=== PATIENT | female | born 1990 | race American Indian/Alaskan Native ===

== ENCOUNTER 2018-04-01 15:11 | Emergency (ER) | payer MEDICAID, OTHER, SELFPAY ==
--- NOTE | 2018-04-01 15:25 | ED_ITS ---
HPI - Female Genitourinary <AYDEN Harman - Last Filed: 04/01/18 21:33> General Chief complaint: Urogenital-Female Stated complaint: THINKS HER KIDNEY HURTS Time Seen by Provider: 04/01/18 15:24 History of Present Illness HPI Narrative: 27-year-old female here for complaint of pain into her right lower back for the past week. She denies any trauma to the area although she does state that she has been working out. She reports increased pain with motion of the right back. She denies any urinary symptoms. She denies any blood in her urine. No abnormal vaginal discharge or bleeding. Last bowel movement was earlier today and was unremarkable. No nausea vomiting no fevers or chills. She also states she has had generalized lower abdominal discomfort however nothing specific in no point tenderness. Related Data Home Medications Medication Instructions Recorded Confirmed ibuprofen 800 mg PO TIDP PRN #0 03/17/17 vit-iron fum-folic ac 1 cap PO QDAY #0 03/17/17 [Mynatal] Previous Rx's Medication Instructions Recorded amoxicillin-pot clavulanate 875 mg PO BID #20 tab 03/13/17 [Augmentin] metronidazole [Flagyl] 500 mg PO TID #30 tab 03/16/17 ibuprofen 800 mg PO Q8H #60 tab 03/21/17 hydrocodone-acetaminophen 0 tab PO Q6H PRN PRN #15 tab 03/24/17 Allergies Allergy/AdvReac Type Severity Reaction Status Date / Time hydrocodone AdvReac Redness of Verified 04/01/18 15:41 Skin Review of Systems <AYDEN Harman - Last Filed: 04/01/18 21:33> Constitutional Denies chills, Denies fever(s), Denies lethargy and Denies weakness Eyes Denies change in vision, Denies eye discharge, Denies irritation and Denies loss of vision ENT Ears, Nose, Mouth, and Throat: Denies change in voice, Denies neck pain and Denies sore throat Cardiovascular Denies dyspnea and Denies dyspnea on exertion Respiratory Denies cough, Denies dyspnea, Denies dyspnea on exertion and Denies wheezing Gastrointestinal Gastrointestinal: Reports abdominal pain Genitourinary Reports flank pain Musculoskeletal Reports back pain and Denies neck pain Neurologic Denies confusion, Denies loss of vision and Denies weakness Psychiatric Denies anxiety, Denies confusion, Denies depression, Denies homicidal ideation and Denies suicidal ideation Allergic/Immunologic Denies wheezing Exam <AYDEN Harman - Last Filed: 04/01/18 21:33> Initial Vital Signs Initial Vital Signs: Vital Signs Temperature 98.6 F 04/01/18 15:36 Pulse Rate 54 L 04/01/18 15:36 Respiratory Rate 14 04/01/18 15:36 Blood Pressure 132/68 H 04/01/18 15:36 Pulse Oximetry 100 04/01/18 15:36 Const General: cooperative and well developed Nutritional Appearance: well nourished Orientation: alert, awake, oriented x3 and not confused HENMT Mouth: oral mucosae normal, oropharynx normal and moist mucous membranes Eyes General: appearance normal, both eyes and all related structures Eyelids: eyelids normal Conjunctivae: conjunctivae normal Sclera: sclerae normal Pupils: PERRL EOM: EOM intact bilaterally Resp Effort & Inspection: normal respiratory effort, able to speak in complete sentences, no respiratory distress and no use of accessory muscles Auscultation: clear to auscultation bilaterally, no rales, no rhonchi and no wheezes Cardio Rate: regular rate Rhythm: regular rhythm Heart Sounds: no click, no gallops, no murmurs and no rubs GI Palpation: soft and No hepatomegaly Other: Generalized tenderness to bilateral lower abdomen no point tenderness. No CVA tenderness. No masses or hernias appreciated. General: No CVA tenderness Back/Spine/Pelvis Other: Tenderness to the right lumbar paraspinals Skin General: no rashes or lesions noted, No jaundice and No petechiae <Balbir Zimmerman DO - Last Filed: 04/01/18 22:04> Initial Vital Signs Initial Vital Signs: Vital Signs Temperature 98.6 F 04/01/18 15:36 Pulse Rate 54 L 04/01/18 15:36 Respiratory Rate 14 04/01/18 15:36 Blood Pressure 132/68 H 04/01/18 15:36 Pulse Oximetry 100 04/01/18 15:36 Course <AYDEN Harman - Last Filed: 04/01/18 21:33> Orders Ordered: ED Orders 04/01/18 17:47 CT abdomen pelvis w con Stat 04/01/18 18:09 Complete Blood Count AUTO DIFF Stat Comprehensive Metabolic Panel Stat Lipase Stat Discontinued Medications Diphenhydramine HCl (Benadryl) 25 mg IV NOW ONE Stop: 04/01/18 17:46 Last Admin: 04/01/18 18:16 Dose: 25 mg Hydromorphone HCl (Dilaudid) 0.5 mg IV NOW ONE Stop: 04/01/18 17:46 Last Admin: 04/01/18 18:56 Dose: Not Given Hydromorphone HCl (Dilaudid) 0.5 mg IV NOW ONE Stop: 04/01/18 18:18 Last Admin: 04/01/18 18:18 Dose: 0.5 mg Sodium Chloride (Normal Saline 0.9%) 1,000 mls @ 150 mls/hr IV CONT AMY Last Infusion: 04/01/18 19:46 Dose: 0 mls/hr Infusion: 04/01/18 19:08 Dose: 150 mls/hr Infusion: 04/01/18 18:32 Dose: 0 mls/hr Admin: 04/01/18 18:16 Dose: 150 mls/hr Vital Signs - 8 hr 04/01/18 15:36 04/01/18 17:38 04/01/18 18:00 Temperature 98.6 F Pulse Rate 54 L 54 L 57 L Respiratory Rate 14 12 12 Blood Pressure 132/68 H Blood Pressure [Left Arm] 124/52 H 119/78 Pulse Oximetry 100 98 100 04/01/18 19:14 04/01/18 19:39 04/01/18 19:55 Temperature Pulse Rate 64 68 58 L Respiratory Rate 14 Blood Pressure 127/72 H Blood Pressure [Left Arm] 123/76 H 127/72 H Pulse Oximetry 100 100 98 <Balbir Zimmerman DO - Last Filed: 04/01/18 22:04> Orders Ordered: ED Orders 04/01/18 17:47 CT abdomen pelvis w con Stat 04/01/18 18:09 Complete Blood Count AUTO DIFF Stat Comprehensive Metabolic Panel Stat Lipase Stat Discontinued Medications Diphenhydramine HCl (Benadryl) 25 mg IV NOW ONE Stop: 04/01/18 17:46 Last Admin: 04/01/18 18:16 Dose: 25 mg Hydromorphone HCl (Dilaudid) 0.5 mg IV NOW ONE Stop: 05/23/18 17:46 Last Admin: 04/01/18 18:56 Dose: Not Given Hydromorphone HCl (Dilaudid) 0.5 mg IV NOW ONE Stop: 04/01/18 18:18 Last Admin: 04/01/18 18:18 Dose: 0.5 mg Sodium Chloride (Normal Saline 0.9%) 1,000 mls @ 150 mls/hr IV CONT AMY Last Infusion: 04/01/18 19:46 Dose: 0 mls/hr Infusion: 04/01/18 19:08 Dose: 150 mls/hr Infusion: 04/01/18 18:32 Dose: 0 mls/hr Admin: 04/01/18 18:16 Dose: 150 mls/hr Vital Signs - 8 hr 04/01/18 15:36 04/01/18 17:38 04/01/18 18:00 Temperature 98.6 F Pulse Rate 54 L 54 L 57 L Respiratory Rate 14 12 12 Blood Pressure 132/68 H Blood Pressure [Left Arm] 124/52 H 119/78 Pulse Oximetry 100 98 100 04/01/18 19:14 04/01/18 19:39 04/01/18 19:55 Temperature Pulse Rate 64 68 58 L Respiratory Rate 14 Blood Pressure 127/72 H Blood Pressure [Left Arm] 123/76 H 127/72 H Pulse Oximetry 100 100 98 MDM - Female Genitourinary <AYDEN Harman - Last Filed: 04/01/18 21:33> Lab Data Result diagrams: 04/01/18 18:09 04/01/18 18:09 Lab Results 04/01/18 04/01/18 Range/Units 18:09 18:09 WBC 7.6 (4.5-11.0) X10^3/uL RBC 4.11 (4.0-5.2) X10^6/uL Hgb 10.1 L (12.0-16.0) g/dL Hct 30.7 L (36-46) % MCV 74.9 L (80-100) fL MCH 24.5 L (26-34) PG MCHC 32.8 (30-36) % RDW 18.2 H (11.6-14.8) % Plt Count 244 (150-400) X10^3/uL Neut % (Auto) 52.0 (50-75) % Lymph % (Auto) 36.1 (25-40) % [place] % (Auto) 9.0 (3-14) % Eos % (Auto) 1.7 L (2-4) % Baso % (Auto) 1.2 (0-2) % Neut # (Auto) 3900 (0769-9791) /uL RBC Morphology Not Reportable Hypochromasia 1+ H Microcytosis 1+ H Sodium 139 (137-145) mmol/L Potassium 3.6 (3.4-5.1) mmol/L Chloride 101.0 (98-107) mmol/L Carbon Dioxide 28.0 (22-32) mmol/L BUN 9.0 (7-17) mg/dL Creatinine 0.60 (0.52-1.04) mg/dL Estimated GFR > 60.0 (>60) mL/min BUN/Creatinine Ratio 15.0 (6-22) Glucose 87 (70-100) mg/dL Calcium 8.8 (8.4-10.2) mg/dL Total Bilirubin 0.4 (0.2-1.3) mg/dL AST 19 (14-36) IU/L ALT 26 (9-52) IU/L Alkaline Phosphatase 55 (38-126) U/L Total Protein 7.2 (6.3-8.2) g/dL Albumin 4.2 (3.5-5.0) g/dL Globulin 3.0 (1.7-4.1) g/dL Albumin/Globulin Ratio 1.4 (1.0-2.8) Lipase 63 (23-300) U/L Imaging Data CT scan - abdomen: Radiologist's impression: PROCEDURE: CT ABDOMEN PELVIS W CON INDICATIONS: Right flank pain and generalized abdominal pain TECHNIQUE: After the administration of oral and intravenous contrast, 5 mm thick sections acquired from the diaphragms to the symphysis. 5 mm thick coronal and sagittal reformats were performed. For radiation dose reduction, the following was used: automated exposure control, adjustment of mA and/or kV according to patient size. COMPARISON: [facility], CT, ABDOMEN/PELVIS WITH CONTRAST, 07/26/2008, 13: 05. FINDINGS: Image quality: Excellent. ABDOMEN: Lung bases: Lung bases are clear. Heart size is normal. Solid organs: Liver is normal in size and enhancement. The gallbladder is surgically absent. There is increased extrahepatic biliary ductal dilatation, with the common bile duct measuring up to approximately 12 mm. This extends to the ampulla of Vater. No calcified common duct stones identified. No intrahepatic biliary ductal dilatation. Pancreas enhances normally without discrete mass identified. No pancreatic duct dilatation. Spleen is normal in size and enhancement. No adrenal nodules. Kidneys are normal in size and enhancement, without hydronephrosis. There are surgical clips redemonstrated in the subhepatic space and along the right paracolic gutter. Peritoneum and bowel: Stomach, small bowel, and colon loops are normal in caliber and wall thickness. No pericecal inflammatory changes to suggest appendicitis. There is a small amount of pelvic free fluid which appears within physiologic limits. Nodes and vessels: No retroperitoneal or mesenteric adenopathy. Aorta and inferior vena cava are normal in caliber. Miscellaneous: No ventral hernias. PELVIS: Genitourinary: Bladder wall thickness is normal. There is a thin-walled left ovarian cyst measuring up to 3.4 cm. Miscellaneous: No inguinal hernias or adenopathy. Bones: No suspicious bony lesions. No vertebral body compression fractures. IMPRESSION: 1. Increased extrahepatic biliary ductal dilatation. Although the findings may represent sequelae of prior cholecystectomy, correlation is recommended with laboratory values for possible biliary obstruction. 2. No pericecal inflammatory changes to suggest appendicitis. 3. Nonspecific left ovarian cyst may represent a follicular cyst. Dictated by: Kirk Lopez M.D. on 04/01/2018 at 18:58 Approved by: Kirk Lopez M.D. on 04/01/2018 at 19: MDM Narrative Medical decision making narrative: CBC Chem panel lipase were obtained shows mild anemia however otherwise is unremarkable. CT of the abdomen show some dilation of the extrahepatic duct however her lab values are unremarkable and she is not tender to the right upper quadrant area. Urinalysis was obtained was negative for signs of UTI or blood in her urine. Signs and symptoms presents as muscle skeletal pain to the right lumbar region. [id number] Tylenol or Motrin as needed for any discomfort. Follow up with primary care provider. Return emergency room for any worsening symptoms. <Balbir Zimmerman DO - Last Filed: 04/01/18 22:04> Lab Data Lab Results 04/01/18 04/01/18 Range/Units 18:09 18:09 WBC 7.6 (4.5-11.0) X10^3/uL RBC 4.11 (4.0-5.2) X10^6/uL Hgb 10.1 L (12.0-16.0) g/dL Hct 30.7 L (36-46) % MCV 74.9 L (80-100) fL MCH 24.5 L (26-34) PG MCHC 32.8 (30-36) % RDW 18.2 H (11.6-14.8) % Plt Count 244 (150-400) X10^3/uL Neut % (Auto) 52.0 (50-75) % Lymph % (Auto) 36.1 (25-40) % [place] % (Auto) 9.0 (3-14) % Eos % (Auto) 1.7 L (2-4) % Baso % (Auto) 1.2 (0-2) % Neut # (Auto) 3900 (7333-3260) /uL RBC Morphology Not Reportable Hypochromasia 1+ H Microcytosis 1+ H Sodium 139 (137-145) mmol/L Potassium 3.6 (3.4-5.1) mmol/L Chloride 101.0 (98-107) mmol/L Carbon Dioxide 28.0 (22-32) mmol/L BUN 9.0 (7-17) mg/dL Creatinine 0.60 (0.52-1.04) mg/dL Estimated GFR > 60.0 (>60) mL/min BUN/Creatinine Ratio 15.0 (6-22) Glucose 87 (70-100) mg/dL Calcium 8.8 (8.4-10.2) mg/dL Total Bilirubin 0.4 (0.2-1.3) mg/dL AST 19 (14-36) IU/L ALT 26 (9-52) IU/L Alkaline Phosphatase 55 (38-126) U/L Total Protein 7.2 (6.3-8.2) g/dL Albumin 4.2 (3.5-5.0) g/dL Globulin 3.0 (1.7-4.1) g/dL Albumin/Globulin Ratio 1.4 (1.0-2.8) Lipase 63 (23-300) U/L Discharge Plan Departure Patient Disposition: Home, Self-Care Clinical Impression: Back pain Discharge Date/Time: 04/01/18 19:56 Interventions: ED Discharge Assessment Last Done: 04/01/18 19:55 Instructions: DI for Low Back Pain Activity Restrictions/Additional Instructions: Laboratory results and CT were unremarkable today. Signs and symptoms present as back pain due to muscle skeletal reasons. Use [id number] Tylenol or Motrin as needed for any discomfort. Follow up with primary care provider. Return emergency room for any worsening symptoms. Prescriptions: No Action amoxicillin-pot clavulanate [Augmentin] 875 MG/125 MG tablet 875 mg PO BID Qty: 20 RF: 0 metronidazole [Flagyl] 500 MG tablet 500 mg PO TID Qty: 30 RF: 0 ibuprofen 800 MG tablet 800 mg PO TIDP PRNQty: 0 RF: 0 vit-iron fum-folic ac [Mynatal] 1 EACH capsule 1 cap PO QDAY Qty: 0 RF: 0 ibuprofen 800 MG tablet 800 mg PO Q8H Qty: 60 RF: 1 hydrocodone-acetaminophen 5 MG/325 MG tablet PO Q6H PRN PRNQty: 15 RF: 0 Referrals: [facility] [Provider Group] <Balbir Zimmerman DO - Last Filed: 04/01/18 22:04> Cosign ED Attending Jeremy Attestation: I was immediately available in the department for consultation. Documentation has been reviewed. I agree with assessment and plan.
[2018-04-01 15:36] VITALS: BP 132/68; PULSE 54; RESP 14; TEMP 37; O2SAT 100; BMI 24.1
[2018-04-01 17:38] VITALS: BP 124/52; PULSE 54; RESP 12; O2SAT 98
--- NOTE | 2018-04-01 17:47 | DI.CT.S_ITS ---
PROCEDURE: CT ABDOMEN PELVIS W CON INDICATIONS: Right flank pain and generalized abdominal pain TECHNIQUE: After the administration of oral and intravenous contrast, 5 mm thick sections acquired from the diaphragms to the symphysis. 5 mm thick coronal and sagittal reformats were performed. For radiation dose reduction, the following was used: automated exposure control, adjustment of mA and/or kV according to patient size. COMPARISON: [facility], CT, ABDOMEN/PELVIS WITH CONTRAST, 07/26/2008, 13:05. FINDINGS: Image quality: Excellent. ABDOMEN: Lung bases: Lung bases are clear. Heart size is normal. Solid organs: Liver is normal in size and enhancement. The gallbladder is surgically absent. There is increased extrahepatic biliary ductal dilatation, with the common bile duct measuring up to approximately 12 mm. This extends to the ampulla of Vater. No calcified common duct stones identified. No intrahepatic biliary ductal dilatation. Pancreas enhances normally without discrete mass identified. No pancreatic duct dilatation. Spleen is normal in size and enhancement. No adrenal nodules. Kidneys are normal in size and enhancement, without hydronephrosis. There are surgical clips redemonstrated in the subhepatic space and along the right paracolic gutter. Peritoneum and bowel: Stomach, small bowel, and colon loops are normal in caliber and wall thickness. No pericecal inflammatory changes to suggest appendicitis. There is a small amount of pelvic free fluid which appears within physiologic limits. Nodes and vessels: No retroperitoneal or mesenteric adenopathy. Aorta and inferior vena cava are normal in caliber. Miscellaneous: No ventral hernias. PELVIS: Genitourinary: Bladder wall thickness is normal. There is a thin-walled left ovarian cyst measuring up to 3.4 cm. Miscellaneous: No inguinal hernias or adenopathy. Bones: No suspicious bony lesions. No vertebral body compression fractures. IMPRESSION: 1. Increased extrahepatic biliary ductal dilatation. Although the findings may represent sequelae of prior cholecystectomy, correlation is recommended with laboratory values for possible biliary obstruction. 2. No pericecal inflammatory changes to suggest appendicitis. 3. Nonspecific left ovarian cyst may represent a follicular cyst. Dictated by: Kirk Lopez M.D. on 04/01/2018 at 18:58 Approved by: Kirk Lopez M.D. on 04/01/2018 at 19:03
[2018-04-01 18:00] VITALS: BP 119/78; PULSE 57; RESP 12; O2SAT 100
[2018-04-01] MEDS: SODIUM CHLORIDE 0.9% 1,000 ML 150 ML IV (18:16)
[2018-04-01] MEDS: diphenhydrAMINE 50 MG/ML VIAL 25 MG IV (18:16)
[2018-04-01 18:17] LABS: Basophils Percent Auto 1.2 % (0-2); Eosinophils Percent Auto 1.7 % (2-4); Hematocrit 30.7 % (36-46); Hemoglobin 10.1 g/dL (12.0-16.0); Lymphocytes Percent Auto 36.1 % (25-40); Mean Corpuscular HGB Conc 32.8 % (30-36); Mean Corpuscular Hemoglobin 24.5 PG (26-34); Mean Corpuscular Volume 74.9 fL (80-100); Neutrophils Absolute Auto 3900 /uL (3000-5900); Platelet Count 244 X10^3/uL (150-400); Red Blood Cell Count 4.11 X10^6/uL (4.0-5.2); Red Cell Distribution Width 18.2 % (11.6-14.8); White Blood Cell Count 7.6 X10^3/uL (4.5-11.0)
[2018-04-01] MEDS: HYDROMORPHONE 0.5 MG INJ IV (18:18)
[2018-04-01 18:28] LABS: Add Manual Diff / Slide Review SLIDE REVIEW; Alanine Aminotransferase 26 IU/L (9-52); Albumin 4.2 g/dL (3.5-5.0); Albumin Globulin Ratio 1.4 (1.0-2.8); Alkaline Phosphatase 55 U/L (38-126); Aspartate Aminotransferase 19 IU/L (14-36); Bilirubin Total 0.4 mg/dL (0.2-1.3); Calcium 8.8 mg/dL (8.4-10.2); Estimated Glomerular Filt Rate > 60.0 mL/min (>60); Glucose 87 mg/dL (70-100); HEMOLYSIS < 15 (0-50); Lipase 63 U/L (23-300); Potassium 3.6 mmol/L (3.4-5.1); Sodium 139 mmol/L (137-145); Total Protein 7.2 g/dL (6.3-8.2)
[2018-04-01 18:33] LABS: Hypochromasia 1+; Microcytosis 1+
--- NOTE | 2018-04-01 19:05 | PC.NURSE ---
pt having right flank pain since 03/26. it is now on the left side and is also c/o nausea.
[2018-04-01 19:14] VITALS: BP 123/76; PULSE 64; O2SAT 100
[2018-04-01 19:39] VITALS: BP 127/72; PULSE 68; RESP 14; O2SAT 100
[2018-04-01 19:55] VITALS: BP 127/72; PULSE 58; O2SAT 98
== END 2018-04-01 19:56 | disposition home or self-care (01) ==
PROVIDERS: Emergency Provider Nurse Practitioner Family
DX: M54.5 Low back pain (principal)
CPT/HCPCS: 36591; 74177; 80053; 81003; 81025; 83690; 85025; 96361; 96374; 96375; 96376; 99284; J1170; J1200; Q9967

== ENCOUNTER 2019-02-25 19:32 | Emergency (ER) | payer MEDICAID, OTHER, SELFPAY ==
[2019-02-25 19:40] VITALS: BP 94/79; PULSE 66; RESP 15; TEMP 37.2; O2SAT 99; BMI 27.3
--- NOTE | 2019-02-25 19:44 | ED.GENADULT ---
HPI - General Adult General Chief complaint: Vaginal Bleeding Stated complaint: 2 months , vaginal bleeding Time Seen by Provider: 02/25/19 19:44 Source: patient Mode of arrival: ambulatory Limitations: no limitations History of Present Illness HPI narrative: Patient is a who thinks she is approximately 2 months EGA here for evaluation of vaginal bleeding. She states she had a positive home test last week. Has not seen a de icer kit assembler for this . She has not noted blood type is. She states that it prior to arrival she had onset of vaginal bleeding to the point where she is bleeding through multiple pads. Is having some lower abdominal cramping. Related Data Home Medications Medication Instructions Recorded Confirmed ibuprofen 800 mg PO TIDP PRN #0 03/17/17 vit-iron fum-folic ac 1 cap PO QDAY #0 03/17/17 [Mynatal] Previous Rx's Medication Instructions Recorded amoxicillin-pot clavulanate 875 mg PO BID #20 tab 03/13/17 [Augmentin] metronidazole [Flagyl] 500 mg PO TID #30 tab 03/16/17 ibuprofen 800 mg PO Q8H #60 tab 03/21/17 hydrocodone-acetaminophen 0 tab PO Q6H PRN PRN #15 tab 03/24/17 Allergies Allergy/AdvReac Type Severity Reaction Status Date / Time hydrocodone AdvReac Redness of Verified 04/01/18 15:41 Skin Review of Systems Constitutional Denies headache(s) ENT Ears, Nose, Mouth, and Throat: Denies headache(s) Gastrointestinal Gastrointestinal: Reports abdominal pain and Reports cramping Genitourinary Reports vaginal discharge Musculoskeletal Denies myalgias and Denies arthralgias Integumentary/Breasts Denies rash Neurologic Denies headache(s) Hematologic/Lymphatic Denies easy bleeding and Denies easy bruising [facility] Medical History Healthy adult (Acute) Surgical History (Updated 03/10/18 @ 04:58 by Marcello Elizabeth MD) Status post delivery Status post delivery (03/03/17) Social History Smoking Status: Current some day smoker Social History Smoking Status: Current some day smoker Exam Initial Vital Signs Initial Vital Signs: Vital Signs Temperature 98.9 F 02/25/19 19:40 Pulse Rate 66 02/25/19 19:40 Respiratory Rate 15 02/25/19 19:40 Blood Pressure 94/79 02/25/19 19:40 Pulse Oximetry 99 02/25/19 19:40 Const General: cooperative, well groomed and No acute distress Orientation: alert and awake HENMT Head: normal to inspection and normocephalic Resp Effort & Inspection: normal respiratory effort Cardio Rate: regular rate GI Inspection: non-distended Palpation: soft, No firm and tender (Lower abdomen) Skin Lesions: no lesions Rashes: no rashes Neuro General: alert and awake Cognition: normal cognition Speech: speech normal Extrem General: normal to inspection and capillary refill normal Psych Appearance: grossly normal and well kempt Course Orders Ordered: ED Orders 02/25/19 19:47 US pelvic complete Stat 02/25/19 19:52 ABO RH Type Stat HCG Quantitative Stat Vital Signs - 8 hr 02/25/19 19:40 02/25/19 21:49 Temperature 98.9 F Pulse Rate 66 72 Respiratory Rate 15 Blood Pressure 94/79 Blood Pressure [Left Arm] 121/77 Pulse Oximetry 99 99 Medical Decision Making Lab Data Lab results reviewed: Yes I reviewed the patient's lab results. Lab Results 02/25/19 02/25/19 Range/Units 19:52 19:52 HCG, Quant 6568.4 mIU/mL Blood Type A Positive Imaging Data US - abdomen: Radiologist's impression: [address] [address] Ultrasound Report Signed Patient: Bisi Washington [facility]#: [id number] : 1990Acct:[id number] Age/Sex: te of Service: 02/25/19 Loc: ED Accession Number: [id number] Procedure: US pelvic complete Ordering Provider: Barber Bloom D.O. PROCEDURE: US PELVIC COMPLETE INDICATIONS: POSITIVE HCG; PAIN, BLEEDING TECHNIQUE: Real-time scanning was performed of the pelvic organs, with image documentation. Additional endovaginal scanning was necessary due to incomplete visualization of the adnexal and endometrial structures by transabdominal scanning. COMPARISON: None. FINDINGS: Transabdominal scanning: Limited scanning through the kidneys shows no hydronephrosis. No pathologic free abdominal or pelvic fluid. Endovaginal scanning: Uterus: Uterus is normal in size at 5.9 x 7.6 x 10.8 cm. The endometrium measures 3.7 cm mm in combined thickness, abnormal, with complex fluid and mass like structure within with no evidence of pole. The appearance is worrisome for representing a missed with retained products of conception. Ovaries: Not seen on the right, normal on the left. IMPRESSION: Abnormal endometrial lining thickness up to 3.7 cm, no intrauterine gestation found, suspect missed , and retained products of conception. Dictated by: Arik Burnett M.D. on 02/25/2019 at 21:48 Approved by: Arik Burnett M.D. on 02/25/2019 at 21:49 MDM Narrative Medical decision making narrative: Blood type is Rh positive. No indication for RhoGAM. Patient does have a quantitative that is above the discriminatory zone however no IUP seen. Given her history and what is seen on the ultrasound there is a high suspicion for missed . I did discuss this with the patient. We discussed return precautions. We discussed follow-up instructions. She expressed understanding and agreement with plan. Discharge Plan Departure Patient Disposition: Home Clinical Impression: Miscarriage Discharge Date/Time: 02/25/19 22:11 Interventions: ED Discharge Assessment Last Done: 02/25/19 22:10 Instructions: Dealing With Miscarriage, DI for Miscarriage Activity Restrictions/Additional Instructions: Recommend that tomorrow you contact either your primary doctor or your de icer kit assembler for a follow-up. Expect continued cramping and vaginal bleeding however if the symptoms worsen or your bleeding through multiple pads an hour over multiple hours please return to the emergency department for further evaluation. Prescriptions: No Action amoxicillin-pot clavulanate [Augmentin] 875 MG/125 MG tablet 875 mg PO BID Qty: 20 RF: 0 metronidazole [Flagyl] 500 MG tablet 500 mg PO TID Qty: 30 RF: 0 ibuprofen 800 MG tablet 800 mg PO TIDP PRNQty: 0 RF: 0 vit-iron fum-folic ac [Mynatal] 1 EACH capsule 1 cap PO QDAY Qty: 0 RF: 0 ibuprofen 800 MG tablet 800 mg PO Q8H Qty: 60 RF: 1 hydrocodone-acetaminophen 5 MG/325 MG tablet PO Q6H PRN PRNQty: 15 RF: 0
--- NOTE | 2019-02-25 19:47 | DI.US.S_ITS ---
PROCEDURE: US PELVIC COMPLETE INDICATIONS: POSITIVE HCG; PAIN, BLEEDING TECHNIQUE: Real-time scanning was performed of the pelvic organs, with image documentation. Additional endovaginal scanning was necessary due to incomplete visualization of the adnexal and endometrial structures by transabdominal scanning. COMPARISON: None. FINDINGS: Transabdominal scanning: Limited scanning through the kidneys shows no hydronephrosis. No pathologic free abdominal or pelvic fluid. Endovaginal scanning: Uterus: Uterus is normal in size at 5.9 x 7.6 x 10.8 cm. The endometrium measures 3.7 cm mm in combined thickness, abnormal, with complex fluid and mass like structure within with no evidence of pole. The appearance is worrisome for representing a missed with retained products of conception. Ovaries: Not seen on the right, normal on the left. IMPRESSION: Abnormal endometrial lining thickness up to 3.7 cm, no intrauterine gestation found, suspect missed , and retained products of conception. Dictated by: Arik Burnett M.D. on 02/25/2019 at 21:48 Approved by: Arik Burnett M.D. on 02/25/2019 at 21:49
[2019-02-25 20:28] LABS: HCG Quantitative /Beta subunit 6568.4 mIU/mL
[2019-02-25 21:49] VITALS: BP 121/77; PULSE 72; O2SAT 99
--- NOTE | 2019-02-25 21:50 | PC.NURSE ---
Heat pack applied to ABD. Pt states she is still unable to urinate at this time.
== END 2019-02-25 22:11 | disposition home or self-care (01) ==
PROVIDERS: Emergency Provider Emergency Medicine
DX: O03.9 Complete or unspecified spontaneous abortion without complication (principal)
CPT/HCPCS: 36591; 76830; 76856; 84702; 86900; 86901; 99282; 99283

== ENCOUNTER 2019-02-26 05:06 | Emergency (ER) | payer MEDICAID, OTHER, SELFPAY ==
--- NOTE | 2019-02-26 05:08 | ED_ITS ---
HPI - General Adult General Chief complaint: Abdominal Pain Stated complaint: vomiting, states miscarriage less than 20 weeks Time Seen by Provider: 02/26/19 05:07 Source: patient Mode of arrival: ambulatory Limitations: no limitations History of Present Illness HPI narrative: Patient is a 28-year-old female who I evaluated earlier in this shift and was diagnosed with a missed AB. She was having vaginal bleeding. Her blood type was Rh positive. she was discharged home with instructions on what is to be expected over the next several hours/days. She returns now because she states that her lower abdomen and lower back are hurting more than before. She has been taking Tylenol for this. Also has had multiple episodes of nausea and vomiting. She states that the bleeding has not changed that much from her prior visit. Related Data Home Medications Medication Instructions Recorded Confirmed ibuprofen 800 mg PO TIDP PRN #0 03/17/17 vit-iron fum-folic ac 1 cap PO QDAY #0 03/17/17 [Mynatal] Previous Rx's Medication Instructions Recorded amoxicillin-pot clavulanate 875 mg PO BID #20 tab 03/13/17 [Augmentin] metronidazole [Flagyl] 500 mg PO TID #30 tab 03/16/17 ibuprofen 800 mg PO Q8H #60 tab 03/21/17 hydrocodone-acetaminophen 0 tab PO Q6H PRN PRN #15 tab 03/24/17 Allergies Allergy/AdvReac Type Severity Reaction Status Date / Time hydrocodone AdvReac Redness of Verified 04/01/18 15:41 Skin Review of Systems Constitutional Denies fever(s) and Denies headache(s) ENT Ears, Nose, Mouth, and Throat: Denies headache(s) Cardiovascular Denies chest pain and Denies dyspnea Respiratory Denies dyspnea Gastrointestinal Gastrointestinal: Reports abdominal pain, Denies change in stool character, Reports nausea and Reports vomiting Integumentary/Breasts Denies rash Neurologic Denies headache(s) Hematologic/Lymphatic Denies easy bleeding and Denies easy bruising [facility] Medical History Healthy adult (Acute) Surgical History Status post delivery Status post delivery (03/03/17) Social History Smoking Status: Former smoker Social History Smoking Status: Former smoker Exam Initial Vital Signs Initial Vital Signs: Vital Signs Temperature 97 F L 02/26/19 05:19 Pulse Rate 60 02/26/19 05:19 Respiratory Rate 18 02/26/19 05:19 Blood Pressure 114/60 02/26/19 05:19 Pulse Oximetry 100 02/26/19 05:19 Const General: cooperative, well developed, well groomed and No acute distress Orientation: alert, awake and oriented x3 HENMT Head: normal to inspection and normocephalic Resp Effort & Inspection: normal respiratory effort Cardio Rate: regular rate GI Inspection: non-distended Skin Rashes: no rashes Neuro General: alert and awake Cognition: normal cognition Extrem General: normal to inspection Psych Appearance: grossly normal Course Orders Ordered: Discontinued Medications Ondansetron HCl (Zofran Odt) 4 mg SL NOW ONE Stop: 02/26/19 05:23 Last Admin: 02/26/19 05:24 Dose: 4 mg Vital Signs - 8 hr 02/26/19 05:19 Temperature 97 F L Pulse Rate 60 Respiratory Rate 18 Blood Pressure 114/60 Pulse Oximetry 100 Medical Decision Making MDM Narrative Medical decision making narrative: Patient reports that her nausea has improved with the Zofran. She has been able to drink a small amount of fluids. She continues to have symptoms consistent with her miscarriage. We did again discuss the expected course of the next couple hours last days. Informed her that she needed to contact her OB provider later today. We can discuss return precautions. Will send home with prepack some nausea and pain medication. Patient expressed understanding and agreement with plan. Discharge Plan Departure Patient Disposition: Home Clinical Impression: Miscarriage Nausea & vomiting Qualifiers: Vomiting type: unspecified Vomiting Intractability: non-intractable Qualified Code(s): R11.2 - Nausea with vomiting, unspecified Instructions: Nausea and Vomiting-Adult Activity Restrictions/Additional Instructions: Use the nausea and pain medication as directed. Contact your OB provider when the office is open later today. Return to the emergency department for any new or worsening symptoms Prescriptions: No Action amoxicillin-pot clavulanate [Augmentin] 875 MG/125 MG tablet 875 mg PO BID Qty: 20 RF: 0 metronidazole [Flagyl] 500 MG tablet 500 mg PO TID Qty: 30 RF: 0 ibuprofen 800 MG tablet 800 mg PO TIDP PRNQty: 0 RF: 0 vit-iron fum-folic ac [Mynatal] 1 EACH capsule 1 cap PO QDAY Qty: 0 RF: 0 ibuprofen 800 MG tablet 800 mg PO Q8H Qty: 60 RF: 1 hydrocodone-acetaminophen 5 MG/325 MG tablet PO Q6H PRN PRNQty: 15 RF: 0
[2019-02-26 05:19] VITALS: BP 114/60; PULSE 60; RESP 18; TEMP 36.1; O2SAT 100
[2019-02-26] MEDS: ONDANSETRON 4 MG ODT SL (05:24)
[2019-02-26] MEDS: ONDANSETRON 4 MG ODT PREPACK 1 BOTTLE MISC (06:39)
[2019-02-26] MEDS: TRAMADOL 50 MG PREPACK 1 BOTTLE MISC (06:39)
[2019-02-26 06:43] VITALS: BP 112/65; PULSE 64; RESP 18; TEMP 36.3; O2SAT 98
== END 2019-02-26 06:44 | disposition home or self-care (01) ==
PROVIDERS: Emergency Provider Emergency Medicine
DX: O03.9 Complete or unspecified spontaneous abortion without complication (principal); R11.2 Nausea with vomiting, unspecified
CPT/HCPCS: 99282; 99283

== ENCOUNTER 2019-03-27 11:14 | Emergency (ER) | payer MEDICAID, OTHER, SELFPAY ==
[2019-03-27 11:39] VITALS: BP 131/77; PULSE 64; RESP 18; TEMP 36.4; O2SAT 97
[2019-03-27 12:05] VITALS: BP 119/67; PULSE 56; RESP 18; O2SAT 100
[2019-03-27 12:32] LABS: Bacteria Urine None Seen
[2019-03-27 12:33] LABS: Appearance Urine UA CLOUDY; Bilirubin Urine UA NEGATIVE (NEGATIVE); Color Urine UA RED; Glucose Urine UA NEGATIVE (Negative); Ketones Urine UA TRACE (NEGATIVE); Leukocyte Esterase Urine UA 1+ (NEGATIVE); Nitrite Urine UA POSITIVE (Negative); Occult Blood Urine UA 3+ (Negative); Protein Urine UA 2+ (Negative); Specific Gravity Urine UA 1.015 (1.000-1.035)
[2019-03-27 12:40] LABS: RBC Urine >100/HPF (0-5/HPF); WBC Urine 1-5/HPF (0-5/HPF)
[2019-03-27 12:41] LABS: Culture Indicated Urine Specimen Cultured; Squamous Epithelial Cell Urine 1-5 /HPF (0-5/HPF)
[2019-03-27 12:43] LABS: Pregnancy Test Urine Positive (Negative)
--- NOTE | 2019-03-27 12:58 | PC.NURSE ---
Pt reports having miscarriage end of last month. States has been bleeding since miscarriage. reports increase in pain in pelvic area and in right side of back. Feels increase in weakness. Reports having frequency and urgency with urination. Was diagnosed with UTI 2 days ago and was started on an antibiotic. Reports has not followed up with OB for miscarriage.
[2019-03-27 13:00] VITALS: BP 114/63; PULSE 55; RESP 18; O2SAT 100
--- NOTE | 2019-03-27 13:29 | ED.FEMALEGU ---
HPI - Female Genitourinary <Jaimie Castillo PA-C - Last Filed: 03/27/19 16:52> General Chief complaint: Urogenital-Female Stated complaint: Bladder infection, fever, bleeding, back pain Time Seen by Provider: 03/27/19 12:38 Source: patient Mode of arrival: ambulatory Limitations: no limitations History of Present Illness HPI Narrative: This generally healthy 28-year-old female comes to ED secondary to persistent, worsening vaginal bleeding, urinary frequency, pelvic and back pain. She states that she was seen by her PCP on Friday. She was having a lot of urinary frequency, started on Macrobid for a UTI at that time, but states that this has continued. She states that she has been having bleeding and spotting since her miscarriage about a month ago. She states that this stopped for 1 day, but has been worsening again since Friday where she is using a pad every hour or 2. She states that she has more bleeding every time she urinates. She states that she has had some chills but no fever. She describes the pain in her pelvis as crampy, better lying down, worse when up and about. She has also had some pain on the left side of her back and abdominal area, but states that this is much less severe than the pelvic pain. She has had nausea but no vomiting. She has not had dysuria or discharge. She denies any other new symptoms on systems review. She states that she has been walking more and lifts her to year old son frequently. She denies any other complaints on systems review Related Data Home Medications Medication Instructions Recorded Confirmed ibuprofen 800 mg PO TIDP PRN #0 03/17/17 vit-iron fum-folic ac 1 cap PO QDAY #0 03/17/17 [Mynatal] Previous Rx's Medication Instructions Recorded amoxicillin-pot clavulanate 875 mg PO BID #20 tab 03/13/17 [Augmentin] metronidazole [Flagyl] 500 mg PO TID #30 tab 03/16/17 ibuprofen 800 mg PO Q8H #60 tab 03/21/17 hydrocodone-acetaminophen 0 tab PO Q6H PRN PRN #15 tab 03/24/17 ferrous sulfate [iron] 325 mg PO DAILY #20 tab 03/27/19 ibuprofen 800 mg PO Q8H PRN #30 tab 03/27/19 sulfamethoxazole-trimethoprim 1 tab PO BID 5 Days #10 tab 03/27/19 [Bactrim DS] Allergies Allergy/AdvReac Type Severity Reaction Status Date / Time hydrocodone AdvReac Redness of Verified 04/01/18 15:41 Skin Review of Systems <Jaimie Castillo PA-C - Last Filed: 03/27/19 16:52> Review of Systems ROS Unobtainable: All systems reviewed & are unremarkable except as noted in HPI and below PFSH <Jaimie Castillo PA-C - Last Filed: 03/27/19 16:52> Medical History (Updated 03/27/19 @ 15:40 by Jaimie Castillo PA-C) Healthy adult (Chronic) History of iron deficiency anemia (Chronic) Surgical History Status post delivery Status post delivery (03/03/17) Social History Smoking Status: Former smoker Social History Smoking Status: Former smoker Exam <Jaimie Castillo PA-C - Last Filed: 03/27/19 16:52> Narrative Exam Narrative: GENERAL APPEARANCE: Patient sitting comfortably, in no distress. HEENT: PERRL, EOMI, no scleral icterus, conjunctivae pain NECK: Supple LUNGS: Clear to auscultation bilaterally. HEART: Rate and rhythm regular, normal S1 and S2, no S3 or S4. ABDOMEN: Soft, nondistended, bowel sounds present x 4 quadrants, no masses palpable, no hepatosplenomegaly. Mild tenderness over the left side of the abdomen without guarding or rebound. Moderate suprapubic tenderness. No right-sided tenderness EXTREMITIES: No edema DERMATOLOGIC: No jaundice or exanthem NEUROLOGIC: Alert and oriented with normal speech and coordination MUSCULOSKELETAL: Mild tenderness in the left inferior thoracic musculature Initial Vital Signs Initial Vital Signs: Vital Signs Temperature 97.5 F L 03/27/19 11:39 Pulse Rate 64 03/27/19 11:39 Respiratory Rate 18 03/27/19 11:39 Blood Pressure 131/77 03/27/19 11:39 Pulse Oximetry 97 03/27/19 11:39 <Obdulia Mcgee DO - Last Filed: 03/27/19 18:51> Initial Vital Signs Initial Vital Signs: Vital Signs Temperature 97.5 F L 03/27/19 11:39 Pulse Rate 64 03/27/19 11:39 Respiratory Rate 18 03/27/19 11:39 Blood Pressure 131/77 03/27/19 11:39 Pulse Oximetry 97 03/27/19 11:39 Course <Jaimie Castillo PA-C - Last Filed: 03/27/19 16:52> Orders Ordered: ED Orders 03/27/19 12:07 Test Urine Stat Urinalysis and Microscopic Stat Urine Culture Stat 03/27/19 13:40 US pelvic complete Stat 03/27/19 14:00 ABO RH Type Stat Complete Blood Count AUTO DIFF Stat Comprehensive Metabolic Panel Stat HCG Quantitative Stat Iron Stat Lipase Stat Reevaluation(s) Additional Reevaluation(s): Patient is resting comfortably at the time of discharge. Reviewed lab and ultrasound findings, likely still some bleeding related to miscarriage along with heavy menses, which is not unusual for her. Advised of probable resolving hemorrhage on ultrasound, however this ultrasound does need follow-up. Advised to see PCP for recheck next week to arrange this, and also to restart on her iron. She is agreeable and promised to return if any acutely worsening symptoms in the interim Vital Signs - 8 hr 03/27/19 11:39 03/27/19 12:05 03/27/19 13:00 Temperature 97.5 F L Pulse Rate 64 56 L 55 L Respiratory Rate 18 18 18 Blood Pressure 131/77 Blood Pressure [Left Arm] 119/67 114/63 Pulse Oximetry 97 100 100 03/27/19 14:27 03/27/19 15:39 Temperature Pulse Rate 86 61 Respiratory Rate 18 16 Blood Pressure Blood Pressure [Left Arm] 124/72 124/79 Pulse Oximetry 95 100 <Obdulia Mcgee DO - Last Filed: 03/27/19 18:51> Orders Ordered: ED Orders 03/27/19 12:07 Test Urine Stat Urinalysis and Microscopic Stat Urine Culture Stat 03/27/19 13:40 US pelvic complete Stat 03/27/19 14:00 ABO RH Type Stat Complete Blood Count AUTO DIFF Stat Comprehensive Metabolic Panel Stat HCG Quantitative Stat Iron Stat Lipase Stat Vital Signs - 8 hr 03/27/19 11:39 03/27/19 12:05 03/27/19 13:00 Temperature 97.5 F L Pulse Rate 64 56 L 55 L Respiratory Rate 18 18 18 Blood Pressure 131/77 Blood Pressure [Left Arm] 119/67 114/63 Pulse Oximetry 97 100 100 03/27/19 14:27 03/27/19 15:39 Temperature Pulse Rate 86 61 Respiratory Rate 18 16 Blood Pressure Blood Pressure [Left Arm] 124/72 124/79 Pulse Oximetry 95 100 MDM - Female Genitourinary <Jaimie Castillo PA-C - Last Filed: 03/27/19 16:52> Lab Data Attestation: I reviewed the patient's lab results. Result diagrams: 03/27/19 14:00 03/27/19 14:00 Lab Results 03/27/19 03/27/19 03/27/19 Range/Units 12:07 12:07 14:00 WBC 7.5 (4.5-11.0) X10^3/uL RBC 4.37 (4.0-5.2) X10^6/uL Hgb 12.1 (12.0-16.0) g/dL Hct 36.3 (36-46) % MCV 83.0 (80-100) fL MCH 27.6 (26-34) PG MCHC 33.3 (30-36) % RDW 17.3 H (11.6-14.8) % Plt Count 215 (150-400) X10^3/uL Neut % (Auto) 68.2 (50-75) % Lymph % (Auto) 22.7 L (25-40) % [place] % (Auto) 7.5 (3-14) % Eos % (Auto) 0.6 L (2-4) % Baso % (Auto) 1.0 (0-2) % Neut # (Auto) 5100 (7203-4295) /uL Lymph # (Auto) 1700 (0485-2804) /uL [place] # (Auto) 600 (0-900) /uL Eos # (Auto) 0 (0-450) /uL Baso # (Auto) 100 (0-100) /uL Sodium (137-145) mmol/L Potassium (3.4-5.1) mmol/L Chloride (98-107) mmol/L Carbon Dioxide (22-32) mmol/L BUN (7-17) mg/dL Creatinine (0.52-1.04) mg/dL Estimated GFR (>60) mL/min BUN/Creatinine Ratio (6-22) Glucose (70-100) mg/dL Calcium (8.4-10.2) mg/dL Iron (37-170) ug/dL Total Bilirubin (0.2-1.3) mg/dL AST (14-36) IU/L ALT (9-52) IU/L Alkaline Phosphatase (38-126) U/L Total Protein (6.3-8.2) g/dL Albumin (3.5-5.0) g/dL Globulin (1.7-4.1) g/dL Albumin/Globulin Ratio (1.0-2.8) Lipase (23-300) U/L HCG, Quant mIU/mL Urine Color Red Urine Appearance Cloudy Urine pH 7.0 (4.5-8.0) Ur Specific [place] 1.015 (1.000-1.035) Urine Protein 2+ H (Negative) Urine Glucose (UA) Negative (Negative) g/dL Urine Ketones Trace H (NEGATIVE) Urine Occult Blood 3+ H (Negative) Urine Nitrate Positive H (Negative) Urine Bilirubin Negative (NEGATIVE) Urine Urobilinogen 1.0 (0.2) E.U./dL Ur Leukocyte Esterase 1+ H (NEGATIVE) Urine RBC >100/hpf H (0-5/HPF) Urine WBC 1-5/hpf (0-5/HPF) Ur Squamous Epith Cells 1-5 /hpf (0-5/HPF) Urine Bacteria None seen (None) Ur Culture Indicated? Specimen cultured Urine Test Positive H (Negative) Blood Type 03/27/19 03/27/19 03/27/19 Range/Units 14:00 14:00 14:00 WBC (4.5-11.0) X10^3/uL RBC (4.0-5.2) X10^6/uL Hgb (12.0-16.0) g/dL Hct (36-46) % MCV (80-100) fL MCH (26-34) PG MCHC (30-36) % RDW (11.6-14.8) % Plt Count (150-400) X10^3/uL Neut % (Auto) (50-75) % Lymph % (Auto) (25-40) % [place] % (Auto) (3-14) % Eos % (Auto) (2-4) % Baso % (Auto) (0-2) % Neut # (Auto) (4398-0981) /uL Lymph # (Auto) (5127-8545) /uL [place] # (Auto) (0-900) /uL Eos # (Auto) (0-450) /uL Baso # (Auto) (0-100) /uL Sodium 143 (137-145) mmol/L Potassium 3.7 (3.4-5.1) mmol/L Chloride 105 (98-107) mmol/L Carbon Dioxide 26 (22-32) mmol/L BUN 10 (7-17) mg/dL Creatinine 0.70 (0.52-1.04) mg/dL Estimated GFR > 60.0 (>60) mL/min BUN/Creatinine Ratio 14.3 (6-22) Glucose 94 (70-100) mg/dL Calcium 9.8 (8.4-10.2) mg/dL Iron 24 L (37-170) ug/dL Total Bilirubin 0.6 (0.2-1.3) mg/dL AST 17 (14-36) IU/L ALT 11 (9-52) IU/L Alkaline Phosphatase 55 (38-126) U/L Total Protein 8.4 H (6.3-8.2) g/dL Albumin 4.9 (3.5-5.0) g/dL Globulin 3.5 (1.7-4.1) g/dL Albumin/Globulin Ratio 1.4 (1.0-2.8) Lipase 161 (23-300) U/L HCG, Quant 212.77 mIU/mL Urine Color Urine Appearance Urine pH (4.5-8.0) Ur Specific [place] (1.000-1.035) Urine Protein (Negative) Urine Glucose (UA) (Negative) g/dL Urine Ketones (NEGATIVE) Urine Occult Blood (Negative) Urine Nitrate (Negative) Urine Bilirubin (NEGATIVE) Urine Urobilinogen (0.2) E.U./dL Ur Leukocyte Esterase (NEGATIVE) Urine RBC (0-5/HPF) Urine WBC (0-5/HPF) Ur Squamous Epith Cells (0-5/HPF) Urine Bacteria (None) Ur Culture Indicated? Urine Test (Negative) Blood Type A Positive Imaging Data pelvic: Radiologist's impression: 17 Jaimie Castillo PA-C Find Patient Imaging Bisi Washington 28 F 1990 ACTIVITY DATE EXAM STATUS AUTHOR 03/27/19 13:40 Signed [facility],[address] [address] Ultrasound Report Signed Patient: Bisi Washington MMR#: [id number] : 1990Acct:[id number] Age/Sex: FDate of Service: 03/27/19 Loc: ED Accession Number: [id number] Procedure: US pelvic complete Ordering Provider: Jaimie Castillo P.A-C PROCEDURE: US PELVIC COMPLETE INDICATIONS: PT MISCAR 1 MON AGO BUT BLEEDING, +UPG TODAY, PAIN TECHNIQUE: Real-time scanning was performed of the pelvic organs, with image documentation. Additional endovaginal scanning was necessary due to incomplete visualization of the adnexal and endometrial structures by transabdominal scanning. COMPARISON: [facility], US, US PELVIC COMPLETE, 02/25/2019, 21:17. [facility], CT, CT ABDOMEN PELVIS W CON, 04/01/2018, 18:31. FINDINGS: Transabdominal scanning: Limited scanning through the kidneys shows no hydronephrosis. No pathologic free abdominal or pelvic fluid. Endovaginal scanning: Uterus: Uterus is noted to be mildly enlarged and measures approximately 13.1 x 6.2 cm. Moderate heterogeneity of the endometrium is identified along the lower uterine segment, demonstrating increased vascularity and slight increased echogenicity, measuring up to 3.8 x 2.7 cm. The this is less conspicuous on the current study, compared to the previous examination and could potentially be positioned within the cavity at the lower uterine segment/cervix. The fundal portion of the endometrium measures up to 6 mm in maximal combined thickness, which is within normal limits. Ovaries: The right ovary measures 3.2 x 1.9 x 2.0 cm. The left ovary measures 2.1 x 1.9 x 1.8 cm. Both ovaries are normal in size without cystic or solid mass. IMPRESSION: 1. Ovoid area of heterogeneous echogenicity within the lower uterine segment/cervix may represent a resolving hemorrhage. However, a fibroid or endometrial polyp could also have this appearance. Superimposed infection is difficult to exclude. Contrast enhanced MRI may be helpful for better evaluation. Otherwise, a followup pelvic ultrasound in approximately 2 to weeks is recommended. 2. Unremarkable ovaries. Dictated by: Raul Oliva M.D. on 03/27/2019 at 13:45 Approved by: Raul Oliva M.D. on 03/27/2019 at 13:51 <Obdulia Mcgee DO - Last Filed: 03/27/19 18:51> Lab Data Lab Results 03/27/19 03/27/19 03/27/19 Range/Units 12:07 12:07 14:00 WBC 7.5 (4.5-11.0) X10^3/uL RBC 4.37 (4.0-5.2) X10^6/uL Hgb 12.1 (12.0-16.0) g/dL Hct 36.3 (36-46) % MCV 83.0 (80-100) fL MCH 27.6 (26-34) PG MCHC 33.3 (30-36) % RDW 17.3 H (11.6-14.8) % Plt Count 215 (150-400) X10^3/uL Neut % (Auto) 68.2 (50-75) % Lymph % (Auto) 22.7 L (25-40) % [place] % (Auto) 7.5 (3-14) % Eos % (Auto) 0.6 L (2-4) % Baso % (Auto) 1.0 (0-2) % Neut # (Auto) 5100 (2284-9816) /uL Lymph # (Auto) 1700 (8289-1411) /uL [place] # (Auto) 600 (0-900) /uL Eos # (Auto) 0 (0-450) /uL Baso # (Auto) 100 (0-100) /uL Sodium (137-145) mmol/L Potassium (3.4-5.1) mmol/L Chloride (98-107) mmol/L Carbon Dioxide (22-32) mmol/L BUN (7-17) mg/dL Creatinine (0.52-1.04) mg/dL Estimated GFR (>60) mL/min BUN/Creatinine Ratio (6-22) Glucose (70-100) mg/dL Calcium (8.4-10.2) mg/dL Iron (37-170) ug/dL Total Bilirubin (0.2-1.3) mg/dL AST (14-36) IU/L ALT (9-52) IU/L Alkaline Phosphatase (38-126) U/L Total Protein (6.3-8.2) g/dL Albumin (3.5-5.0) g/dL Globulin (1.7-4.1) g/dL Albumin/Globulin Ratio (1.0-2.8) Lipase (23-300) U/L HCG, Quant mIU/mL Urine Color Red Urine Appearance Cloudy Urine pH 7.0 (4.5-8.0) Ur Specific [place] 1.015 (1.000-1.035) Urine Protein 2+ H (Negative) Urine Glucose (UA) Negative (Negative) g/dL Urine Ketones Trace H (NEGATIVE) Urine Occult Blood 3+ H (Negative) Urine Nitrate Positive H (Negative) Urine Bilirubin Negative (NEGATIVE) Urine Urobilinogen 1.0 (0.2) E.U./dL Ur Leukocyte Esterase 1+ H (NEGATIVE) Urine RBC >100/hpf H (0-5/HPF) Urine WBC 1-5/hpf (0-5/HPF) Ur Squamous Epith Cells 1-5 /hpf (0-5/HPF) Urine Bacteria None seen (None) Ur Culture Indicated? Specimen cultured Urine Test Positive H (Negative) Blood Type 03/27/19 03/27/19 03/27/19 Range/Units 14:00 14:00 14:00 WBC (4.5-11.0) X10^3/uL RBC (4.0-5.2) X10^6/uL Hgb (12.0-16.0) g/dL Hct (36-46) % MCV (80-100) fL MCH (26-34) PG MCHC (30-36) % RDW (11.6-14.8) % Plt Count (150-400) X10^3/uL Neut % (Auto) (50-75) % Lymph % (Auto) (25-40) % [place] % (Auto) (3-14) % Eos % (Auto) (2-4) % Baso % (Auto) (0-2) % Neut # (Auto) (0653-8614) /uL Lymph # (Auto) (6604-8808) /uL [place] # (Auto) (0-900) /uL Eos # (Auto) (0-450) /uL Baso # (Auto) (0-100) /uL Sodium 143 (137-145) mmol/L Potassium 3.7 (3.4-5.1) mmol/L Chloride 105 (98-107) mmol/L Carbon Dioxide 26 (22-32) mmol/L BUN 10 (7-17) mg/dL Creatinine 0.70 (0.52-1.04) mg/dL Estimated GFR > 60.0 (>60) mL/min BUN/Creatinine Ratio 14.3 (6-22) Glucose 94 (70-100) mg/dL Calcium 9.8 (8.4-10.2) mg/dL Iron 24 L (37-170) ug/dL Total Bilirubin 0.6 (0.2-1.3) mg/dL AST 17 (14-36) IU/L ALT 11 (9-52) IU/L Alkaline Phosphatase 55 (38-126) U/L Total Protein 8.4 H (6.3-8.2) g/dL Albumin 4.9 (3.5-5.0) g/dL Globulin 3.5 (1.7-4.1) g/dL Albumin/Globulin Ratio 1.4 (1.0-2.8) Lipase 161 (23-300) U/L HCG, Quant 212.77 mIU/mL Urine Color Urine Appearance Urine pH (4.5-8.0) Ur Specific [place] (1.000-1.035) Urine Protein (Negative) Urine Glucose (UA) (Negative) g/dL Urine Ketones (NEGATIVE) Urine Occult Blood (Negative) Urine Nitrate (Negative) Urine Bilirubin (NEGATIVE) Urine Urobilinogen (0.2) E.U./dL Ur Leukocyte Esterase (NEGATIVE) Urine RBC (0-5/HPF) Urine WBC (0-5/HPF) Ur Squamous Epith Cells (0-5/HPF) Urine Bacteria (None) Ur Culture Indicated? Urine Test (Negative) Blood Type A Positive Discharge Plan Departure Patient Disposition: Home Clinical Impression: Spontaneous complicated by delayed or excessive hemorrhage Heavy menstrual bleeding Qualifiers: Menorrahagia type: with regular cycle Qualified Code(s): N92.0 - Excessive and frequent menstruation with regular cycle UTI (urinary tract infection) Qualifiers: Urinary tract infection type: acute cystitis Hematuria presence: without hematuria Qualified Code(s): N30.00 - Acute cystitis without hematuria Discharge Date/Time: 03/27/19 15:55 Interventions: ED Discharge Assessment Last Done: 03/27/19 15:55 Instructions: DI for Miscarriage, DI for Urinary Tract Infection (UTI) Activity Restrictions/Additional Instructions: I think that your heavier bleeding is due to a combination of your regular menstrual cycle returning since that tends to be quite heavy, along with the end of the miscarriage that you had. According to your ultrasound, you do have some resolving hemorrhage/bleed there. You do not appear to have any acute infection aside from the ongoing urinary infection. Since you are not better, I have changed the antibiotic for you. Please stop the when you were taking and start taking the new 1 twice daily. Please start the prescription ibuprofen every 8 hours to help with pain and inflammation. Also please restart iron since you have a history of iron deficiency and your number was a little bit low today, you are not anemic yet but with the heavy bleeding you are at risk for that. As we discussed, you do need to have a repeat ultrasound in about 2 weeks to make sure the abnormalities seen are resolving. You should also return if you have any acutely worsening symptoms, i.e. worsening pain, severe bleeding with lightheadedness, or new symptoms such as vomiting or high fever. You should follow-up with your PCP in a few days to make sure you are getting better and review your labs and plan follow-up ultrasound. I have sent your prescriptions into [facility] Prescriptions: New ibuprofen 800 mg tablet 800 mg PO Q8H PRN (Reason: pain) Qty: 30 RF: 0 sulfamethoxazole-trimethoprim [Bactrim DS] 800-160 mg tablet 1 tab PO BID 5 Days Qty: 10 RF: 0 ferrous sulfate [iron] 325 mg (65 mg iron) tablet 325 mg PO DAILY Qty: 20 RF: 0 No Action amoxicillin-pot clavulanate [Augmentin] 875 MG/125 MG tablet 875 mg PO BID Qty: 20 RF: 0 metronidazole [Flagyl] 500 MG tablet 500 mg PO TID Qty: 30 RF: 0 ibuprofen 800 MG tablet 800 mg PO TIDP PRNQty: 0 RF: 0 vit-iron fum-folic ac [Mynatal] 1 EACH capsule 1 cap PO QDAY Qty: 0 RF: 0 ibuprofen 800 MG tablet 800 mg PO Q8H Qty: 60 RF: 1 hydrocodone-acetaminophen 5 MG/325 MG tablet PO Q6H PRN PRNQty: 15 RF: 0 Referrals: Jolanta Arteaga MD [Non-Staff] - <Obdulia Mcgee DO - Last Filed: 03/27/19 18:51> Cosign ED Attending Cosjillianature Attestation: I was immediately available in the department for consultation. Documentation has been reviewed. I agree with assessment and plan.
--- NOTE | 2019-03-27 13:40 | DI.US.S_ITS ---
PROCEDURE: US PELVIC COMPLETE INDICATIONS: PT MISCAR 1 MON AGO BUT BLEEDING, +UPG TODAY, PAIN TECHNIQUE: Real-time scanning was performed of the pelvic organs, with image documentation. Additional endovaginal scanning was necessary due to incomplete visualization of the adnexal and endometrial structures by transabdominal scanning. COMPARISON: [facility], US, US PELVIC COMPLETE, 02/25/2019, 21:17. [facility], CT, CT ABDOMEN PELVIS W CON, 04/01/2018, 18:31. FINDINGS: Transabdominal scanning: Limited scanning through the kidneys shows no hydronephrosis. No pathologic free abdominal or pelvic fluid. Endovaginal scanning: Uterus: Uterus is noted to be mildly enlarged and measures approximately 13.1 x 6.2 cm. Moderate heterogeneity of the endometrium is identified along the lower uterine segment, demonstrating increased vascularity and slight increased echogenicity, measuring up to 3.8 x 2.7 cm. The this is less conspicuous on the current study, compared to the previous examination and could potentially be positioned within the cavity at the lower uterine segment/cervix. The fundal portion of the endometrium measures up to 6 mm in maximal combined thickness, which is within normal limits. Ovaries: The right ovary measures 3.2 x 1.9 x 2.0 cm. The left ovary measures 2.1 x 1.9 x 1.8 cm. Both ovaries are normal in size without cystic or solid mass. IMPRESSION: 1. Ovoid area of heterogeneous echogenicity within the lower uterine segment/cervix may represent a resolving hemorrhage. However, a fibroid or endometrial polyp could also have this appearance. Superimposed infection is difficult to exclude. Contrast enhanced MRI may be helpful for better evaluation. Otherwise, a followup pelvic ultrasound in approximately 2 to weeks is recommended. 2. Unremarkable ovaries. Dictated by: Raul Oliva M.D. on 03/27/2019 at 13:45 Approved by: Raul Oliva M.D. on 03/27/2019 at 13:51
--- NOTE | 2019-03-27 13:51 | ED_ITS ---
HPI - Female Genitourinary <Jaimie Castillo PA-C - Last Filed: 03/27/19 16:52> General Chief complaint: Urogenital-Female Stated complaint: Bladder infection, fever, bleeding, back pain Time Seen by Provider: 03/27/19 12:38 Source: patient Mode of arrival: ambulatory Limitations: no limitations History of Present Illness HPI Narrative: This generally healthy 28-year-old female comes to ED secondary to persistent, worsening vaginal bleeding, urinary frequency, pelvic and back pain. She states that she was seen by her PCP on Friday. She was having a lot of urinary frequency, started on Macrobid for a UTI at that time, but states that this has continued. She states that she has been having bleeding and spotting since her miscarriage about a month ago. She states that this stopped for 1 day, but has been worsening again since Friday where she is using a pad every hour or 2. She states that she has more bleeding every time she urinates. She states that she has had some chills but no fever. She describes the pain in her pelvis as crampy, better lying down, worse when up and about. She has also had some pain on the left side of her back and abdominal area, but states that this is much less severe than the pelvic pain. She has had nausea but no vomiting. She has not had dysuria or discharge. She denies any other new symptoms on systems review. She states that she has been walking more and lifts her to year old son frequently. She denies any other complaints on systems review Related Data Home Medications Medication Instructions Recorded Confirmed ibuprofen 800 mg PO TIDP PRN #0 03/17/17 vit-iron fum-folic ac 1 cap PO QDAY #0 03/17/17 [Mynatal] Previous Rx's Medication Instructions Recorded amoxicillin-pot clavulanate 875 mg PO BID #20 tab 03/13/17 [Augmentin] metronidazole [Flagyl] 500 mg PO TID #30 tab 03/16/17 ibuprofen 800 mg PO Q8H #60 tab 03/21/17 hydrocodone-acetaminophen 0 tab PO Q6H PRN PRN #15 tab 03/24/17 ferrous sulfate [iron] 325 mg PO DAILY #20 tab 03/27/19 ibuprofen 800 mg PO Q8H PRN #30 tab 03/27/19 sulfamethoxazole-trimethoprim 1 tab PO BID 5 Days #10 tab 03/27/19 [Bactrim DS] Allergies Allergy/AdvReac Type Severity Reaction Status Date / Time hydrocodone AdvReac Redness of Verified 04/01/18 15:41 Skin Review of Systems <Jaimie Castillo PA-C - Last Filed: 03/27/19 16:52> Review of Systems ROS Unobtainable: All systems reviewed & are unremarkable except as noted in HPI and below PFSH <Jaimie Castillo PA-C - Last Filed: 03/27/19 16:52> Medical History (Updated 03/27/19 @ 15:40 by Jaimie Castillo PA-C) Healthy adult (Chronic) History of iron deficiency anemia (Chronic) Surgical History Status post delivery Status post delivery (03/03/17) Social History Smoking Status: Former smoker Social History Smoking Status: Former smoker Exam <Jaimie Castillo PA-C - Last Filed: 03/27/19 16:52> Narrative Exam Narrative: GENERAL APPEARANCE: Patient sitting comfortably, in no distress. HEENT: PERRL, EOMI, no scleral icterus, conjunctivae pain NECK: Supple LUNGS: Clear to auscultation bilaterally. HEART: Rate and rhythm regular, normal S1 and S2, no S3 or S4. ABDOMEN: Soft, nondistended, bowel sounds present x 4 quadrants, no masses palpable, no hepatosplenomegaly. Mild tenderness over the left side of the abdomen without guarding or rebound. Moderate suprapubic tenderness. No right- sided tenderness EXTREMITIES: No edema DERMATOLOGIC: No jaundice or exanthem NEUROLOGIC: Alert and oriented with normal speech and coordination MUSCULOSKELETAL: Mild tenderness in the left inferior thoracic musculature Initial Vital Signs Initial Vital Signs: Vital Signs Temperature 97.5 F L 03/27/19 11:39 Pulse Rate 64 03/27/19 11:39 Respiratory Rate 18 03/27/19 11:39 Blood Pressure 131/77 03/27/19 11:39 Pulse Oximetry 97 03/27/19 11:39 <Obdulia Mcgee DO - Last Filed: 03/27/19 18:51> Initial Vital Signs Initial Vital Signs: Vital Signs Temperature 97.5 F L 03/27/19 11:39 Pulse Rate 64 03/27/19 11:39 Respiratory Rate 18 03/27/19 11:39 Blood Pressure 131/77 03/27/19 11:39 Pulse Oximetry 97 03/27/19 11:39 Course <Jaimie Castillo PA-C - Last Filed: 03/27/19 16:52> Orders Ordered: ED Orders 03/27/19 12:07 Test Urine Stat Urinalysis and Microscopic Stat Urine Culture Stat 03/27/19 13:40 US pelvic complete Stat 03/27/19 14:00 ABO RH Type Stat Complete Blood Count AUTO DIFF Stat Comprehensive Metabolic Panel Stat HCG Quantitative Stat Iron Stat Lipase Stat Reevaluation(s) Additional Reevaluation(s): Patient is resting comfortably at the time of discharge. Reviewed lab and ultrasound findings, likely still some bleeding related to miscarriage along with heavy menses, which is not unusual for her. Advised of probable resolving hemorrhage on ultrasound, however this ultrasound does need follow-up. Advised to see PCP for recheck next week to arrange this, and also to restart on her iron. She is agreeable and promised to return if any acutely worsening symptoms in the interim Vital Signs - 8 hr 03/27/19 11:39 03/27/19 12:05 03/27/19 13:00 Temperature 97.5 F L Pulse Rate 64 56 L 55 L Respiratory Rate 18 18 18 Blood Pressure 131/77 Blood Pressure [Left Arm] 119/67 114/63 Pulse Oximetry 97 100 100 03/27/19 14:27 03/27/19 15:39 Temperature Pulse Rate 86 61 Respiratory Rate 18 16 Blood Pressure Blood Pressure [Left Arm] 124/72 124/79 Pulse Oximetry 95 100 <Obdulia Mcgee DO - Last Filed: 03/27/19 18:51> Orders Ordered: ED Orders 03/27/19 12:07 Test Urine Stat Urinalysis and Microscopic Stat Urine Culture Stat 03/27/19 13:40 US pelvic complete Stat 03/27/19 14:00 ABO RH Type Stat Complete Blood Count AUTO DIFF Stat Comprehensive Metabolic Panel Stat HCG Quantitative Stat Iron Stat Lipase Stat Vital Signs - 8 hr 03/27/19 11:39 03/27/19 12:05 03/27/19 13:00 Temperature 97.5 F L Pulse Rate 64 56 L 55 L Respiratory Rate 18 18 18 Blood Pressure 131/77 Blood Pressure [Left Arm] 119/67 114/63 Pulse Oximetry 97 100 100 03/27/19 14:27 03/27/19 15:39 Temperature Pulse Rate 86 61 Respiratory Rate 18 16 Blood Pressure Blood Pressure [Left Arm] 124/72 124/79 Pulse Oximetry 95 100 MDM - Female Genitourinary <Jaimie Castillo PA-C - Last Filed: 03/27/19 16:52> Lab Data Attestation: I reviewed the patient's lab results. Result diagrams: 03/27/19 14:00 03/27/19 14:00 Lab Results 03/27/19 03/27/19 03/27/19 Range/Units 12:07 12:07 14:00 WBC 7.5 (4.5-11.0) X10^3/uL RBC 4.37 (4.0-5.2) X10^6/uL Hgb 12.1 (12.0-16.0) g/dL Hct 36.3 (36-46) % MCV 83.0 (80-100) fL MCH 27.6 (26-34) PG MCHC 33.3 (30-36) % RDW 17.3 H (11.6-14.8) % Plt Count 215 (150-400) X10^3/uL Neut % (Auto) 68.2 (50-75) % Lymph % (Auto) 22.7 L (25-40) % [place] % (Auto) 7.5 (3-14) % Eos % (Auto) 0.6 L (2-4) % Baso % (Auto) 1.0 (0-2) % Neut # (Auto) 5100 (6804-8288) /uL Lymph # (Auto) 1700 (4528-9728) /uL [place] # (Auto) 600 (0-900) /uL Eos # (Auto) 0 (0-450) /uL Baso # (Auto) 100 (0-100) /uL Sodium (137-145) mmol/L Potassium (3.4-5.1) mmol/L Chloride (98-107) mmol/L Carbon Dioxide (22-32) mmol/L BUN (7-17) mg/dL Creatinine (0.52-1.04) mg/dL Estimated GFR (>60) mL/min BUN/Creatinine Ratio (6-22) Glucose (70-100) mg/dL Calcium (8.4-10.2) mg/dL Iron (37-170) ug/dL Total Bilirubin (0.2-1.3) mg/dL AST (14-36) IU/L ALT (9-52) IU/L Alkaline Phosphatase (38-126) U/L Total Protein (6.3-8.2) g/dL Albumin (3.5-5.0) g/dL Globulin (1.7-4.1) g/dL Albumin/Globulin Ratio (1.0-2.8) Lipase (23-300) U/L HCG, Quant mIU/mL Urine Color Red Urine Appearance Cloudy Urine pH 7.0 (4.5-8.0) Ur Specific [place] 1.015 (1.000-1.035) Urine Protein 2+ H (Negative) Urine Glucose (UA) Negative (Negative) g/dL Urine Ketones Trace H (NEGATIVE) Urine Occult Blood 3+ H (Negative) Urine Nitrate Positive H (Negative) Urine Bilirubin Negative (NEGATIVE) Urine Urobilinogen 1.0 (0.2) E.U./dL Ur Leukocyte Esterase 1+ H (NEGATIVE) Urine RBC >100/hpf H (0-5/HPF) Urine WBC 1-5/hpf (0-5/HPF) Ur Squamous Epith Cells 1-5 /hpf (0-5/HPF) Urine Bacteria None seen (None) Ur Culture Indicated? Specimen cultured Urine Test Positive H (Negative) Blood Type 03/27/19 03/27/19 03/27/19 Range/Units 14:00 14:00 14:00 WBC (4.5-11.0) X10^3/uL RBC (4.0-5.2) X10^6/uL Hgb (12.0-16.0) g/dL Hct (36-46) % MCV (80-100) fL MCH (26-34) PG MCHC (30-36) % RDW (11.6-14.8) % Plt Count (150-400) X10^3/uL Neut % (Auto) (50-75) % Lymph % (Auto) (25-40) % [place] % (Auto) (3-14) % Eos % (Auto) (2-4) % Baso % (Auto) (0-2) % Neut # (Auto) (9526-9947) /uL Lymph # (Auto) (8234-4265) /uL [place] # (Auto) (0-900) /uL Eos # (Auto) (0-450) /uL Baso # (Auto) (0-100) /uL Sodium 143 (137-145) mmol/L Potassium 3.7 (3.4-5.1) mmol/L Chloride 105 (98-107) mmol/L Carbon Dioxide 26 (22-32) mmol/L BUN 10 (7-17) mg/dL Creatinine 0.70 (0.52-1.04) mg/dL Estimated GFR > 60.0 (>60) mL/min BUN/Creatinine Ratio 14.3 (6-22) Glucose 94 (70-100) mg/dL Calcium 9.8 (8.4-10.2) mg/dL Iron 24 L (37-170) ug/dL Total Bilirubin 0.6 (0.2-1.3) mg/dL AST 17 (14-36) IU/L ALT 11 (9-52) IU/L Alkaline Phosphatase 55 (38-126) U/L Total Protein 8.4 H (6.3-8.2) g/dL Albumin 4.9 (3.5-5.0) g/dL Globulin 3.5 (1.7-4.1) g/dL Albumin/Globulin Ratio 1.4 (1.0-2.8) Lipase 161 (23-300) U/L HCG, Quant 212.77 mIU/mL Urine Color Urine Appearance Urine pH (4.5-8.0) Ur Specific [place] (1.000-1.035) Urine Protein (Negative) Urine Glucose (UA) (Negative) g/dL Urine Ketones (NEGATIVE) Urine Occult Blood (Negative) Urine Nitrate (Negative) Urine Bilirubin (NEGATIVE) Urine Urobilinogen (0.2) E.U./dL Ur Leukocyte Esterase (NEGATIVE) Urine RBC (0-5/HPF) Urine WBC (0-5/HPF) Ur Squamous Epith Cells (0-5/HPF) Urine Bacteria (None) Ur Culture Indicated? Urine Test (Negative) Blood Type A Positive Imaging Data pelvic: Radiologist's impression: 17 Jaimie Castillo PA-C Find Patient Imaging Bisi Washington 28 F 1990 ACTIVITY DATE EXAM STATUS AUTHOR 03/27/19 13:40 Signed [facility],[address] [address] Ultrasound Report Signed Patient: Bisi Washington MMR#: [id number] : 1990Acct:[id number] Age/Sex: FDate of Service: 03/27/19 Loc: ED Accession Number: [id number] Procedure: US pelvic complete Ordering Provider: Jaimie Castillo P.A-C PROCEDURE: US PELVIC COMPLETE INDICATIONS: PT MISCAR 1 MON AGO BUT BLEEDING, +UPG TODAY, PAIN TECHNIQUE: Real-time scanning was performed of the pelvic organs, with image documentation. Additional endovaginal scanning was necessary due to incomplete visualization of the adnexal and endometrial structures by transabdominal scanning. COMPARISON: [facility], US, US PELVIC COMPLETE, 02/25/2019, 21:17. [facility], CT, CT ABDOMEN PELVIS W CON, 04/01/2018, 18:31. FINDINGS: Transabdominal scanning: Limited scanning through the kidneys shows no hydronephrosis. No pathologic free abdominal or pelvic fluid. Endovaginal scanning: Uterus: Uterus is noted to be mildly enlarged and measures approximately 13.1 x 6.2 cm. Moderate heterogeneity of the endometrium is identified along the lower uterine segment, demonstrating increased vascularity and slight increased echogenicity, measuring up to 3.8 x 2.7 cm. The this is less conspicuous on the current study, compared to the previous examination and could potentially be positioned within the cavity at the lower uterine segment/cervix. The fundal portion of the endometrium measures up to 6 mm in maximal combined thickness, which is within normal limits. Ovaries: The right ovary measures 3.2 x 1.9 x 2.0 cm. The left ovary measures 2.1 x 1.9 x 1.8 cm. Both ovaries are normal in size without cystic or solid mass. IMPRESSION: 1. Ovoid area of heterogeneous echogenicity within the lower uterine segment/cervix may represent a resolving hemorrhage. However, a fibroid or endometrial polyp could also have this appearance. Superimposed infection is difficult to exclude. Contrast enhanced MRI may be helpful for better evaluation. Otherwise, a followup pelvic ultrasound in approximately 2 to weeks is recommended. 2. Unremarkable ovaries. Dictated by: Raul Oliva M.D. on 03/27/2019 at 13:45 Approved by: Raul Oliva M.D. on 03/27/2019 at 13:51 <Obdulia Mcgee DO - Last Filed: 03/27/19 18:51> Lab Data Lab Results 03/27/19 03/27/19 03/27/19 Range/Units 12:07 12:07 14:00 WBC 7.5 (4.5-11.0) X10^3/uL RBC 4.37 (4.0-5.2) X10^6/uL Hgb 12.1 (12.0-16.0) g/dL Hct 36.3 (36-46) % MCV 83.0 (80-100) fL MCH 27.6 (26-34) PG MCHC 33.3 (30-36) % RDW 17.3 H (11.6-14.8) % Plt Count 215 (150-400) X10^3/uL Neut % (Auto) 68.2 (50-75) % Lymph % (Auto) 22.7 L (25-40) % [place] % (Auto) 7.5 (3-14) % Eos % (Auto) 0.6 L (2-4) % Baso % (Auto) 1.0 (0-2) % Neut # (Auto) 5100 (8307-1585) /uL Lymph # (Auto) 1700 (4797-3100) /uL [place] # (Auto) 600 (0-900) /uL Eos # (Auto) 0 (0-450) /uL Baso # (Auto) 100 (0-100) /uL Sodium (137-145) mmol/L Potassium (3.4-5.1) mmol/L Chloride (98-107) mmol/L Carbon Dioxide (22-32) mmol/L BUN (7-17) mg/dL Creatinine (0.52-1.04) mg/dL Estimated GFR (>60) mL/min BUN/Creatinine Ratio (6-22) Glucose (70-100) mg/dL Calcium (8.4-10.2) mg/dL Iron (37-170) ug/dL Total Bilirubin (0.2-1.3) mg/dL AST (14-36) IU/L ALT (9-52) IU/L Alkaline Phosphatase (38-126) U/L Total Protein (6.3-8.2) g/dL Albumin (3.5-5.0) g/dL Globulin (1.7-4.1) g/dL Albumin/Globulin Ratio (1.0-2.8) Lipase (23-300) U/L HCG, Quant mIU/mL Urine Color Red Urine Appearance Cloudy Urine pH 7.0 (4.5-8.0) Ur Specific [place] 1.015 (1.000-1.035) Urine Protein 2+ H (Negative) Urine Glucose (UA) Negative (Negative) g/dL Urine Ketones Trace H (NEGATIVE) Urine Occult Blood 3+ H (Negative) Urine Nitrate Positive H (Negative) Urine Bilirubin Negative (NEGATIVE) Urine Urobilinogen 1.0 (0.2) E.U./dL Ur Leukocyte Esterase 1+ H (NEGATIVE) Urine RBC >100/hpf H (0-5/HPF) Urine WBC 1-5/hpf (0-5/HPF) Ur Squamous Epith Cells 1-5 /hpf (0-5/HPF) Urine Bacteria None seen (None) Ur Culture Indicated? Specimen cultured Urine Test Positive H (Negative) Blood Type 03/27/19 03/27/19 03/27/19 Range/Units 14:00 14:00 14:00 WBC (4.5-11.0) X10^3/uL RBC (4.0-5.2) X10^6/uL Hgb (12.0-16.0) g/dL Hct (36-46) % MCV (80-100) fL MCH (26-34) PG MCHC (30-36) % RDW (11.6-14.8) % Plt Count (150-400) X10^3/uL Neut % (Auto) (50-75) % Lymph % (Auto) (25-40) % [place] % (Auto) (3-14) % Eos % (Auto) (2-4) % Baso % (Auto) (0-2) % Neut # (Auto) (1948-0884) /uL Lymph # (Auto) (9479-0554) /uL [place] # (Auto) (0-900) /uL Eos # (Auto) (0-450) /uL Baso # (Auto) (0-100) /uL Sodium 143 (137-145) mmol/L Potassium 3.7 (3.4-5.1) mmol/L Chloride 105 (98-107) mmol/L Carbon Dioxide 26 (22-32) mmol/L BUN 10 (7-17) mg/dL Creatinine 0.70 (0.52-1.04) mg/dL Estimated GFR > 60.0 (>60) mL/min BUN/Creatinine Ratio 14.3 (6-22) Glucose 94 (70-100) mg/dL Calcium 9.8 (8.4-10.2) mg/dL Iron 24 L (37-170) ug/dL Total Bilirubin 0.6 (0.2-1.3) mg/dL AST 17 (14-36) IU/L ALT 11 (9-52) IU/L Alkaline Phosphatase 55 (38-126) U/L Total Protein 8.4 H (6.3-8.2) g/dL Albumin 4.9 (3.5-5.0) g/dL Globulin 3.5 (1.7-4.1) g/dL Albumin/Globulin Ratio 1.4 (1.0-2.8) Lipase 161 (23-300) U/L HCG, Quant 212.77 mIU/mL Urine Color Urine Appearance Urine pH (4.5-8.0) Ur Specific [place] (1.000-1.035) Urine Protein (Negative) Urine Glucose (UA) (Negative) g/dL Urine Ketones (NEGATIVE) Urine Occult Blood (Negative) Urine Nitrate (Negative) Urine Bilirubin (NEGATIVE) Urine Urobilinogen (0.2) E.U./dL Ur Leukocyte Esterase (NEGATIVE) Urine RBC (0-5/HPF) Urine WBC (0-5/HPF) Ur Squamous Epith Cells (0-5/HPF) Urine Bacteria (None) Ur Culture Indicated? Urine Test (Negative) Blood Type A Positive Discharge Plan Departure Patient Disposition: Home Clinical Impression: Spontaneous complicated by delayed or excessive hemorrhage Heavy menstrual bleeding Qualifiers: Menorrahagia type: with regular cycle Qualified Code(s): N92.0 - Excessive and frequent menstruation with regular cycle UTI (urinary tract infection) Qualifiers: Urinary tract infection type: acute cystitis Hematuria presence: without hematuria Qualified Code(s): N30.00 - Acute cystitis without hematuria Discharge Date/Time: 03/27/19 15:55 Interventions: ED Discharge Assessment Last Done: 03/27/19 15:55 Instructions: DI for Miscarriage, DI for Urinary Tract Infection (UTI) Activity Restrictions/Additional Instructions: I think that your heavier bleeding is due to a combination of your regular menstrual cycle returning since that tends to be quite heavy, along with the end of the miscarriage that you had. According to your ultrasound, you do have some resolving hemorrhage/bleed there. You do not appear to have any acute infection aside from the ongoing urinary infection. Since you are not better, I have changed the antibiotic for you. Please stop the when you were taking and start taking the new 1 twice daily. Please start the prescription ibuprofen every 8 hours to help with pain and inflammation. Also please restart iron since you have a history of iron deficiency and your number was a little bit low today, you are not anemic yet but with the heavy bleeding you are at risk for that. As we discussed, you do need to have a repeat ultrasound in about 2 weeks to make sure the abnormalities seen are resolving. You should also return if you have any acutely worsening symptoms, i.e. worsening pain, severe bleeding with lightheadedness, or new symptoms such as vomiting or high fever. You should follow-up with your PCP in a few days to make sure you are getting better and review your labs and plan follow-up ultrasound. I have sent your prescriptions into [facility] Prescriptions: New ibuprofen 800 mg tablet 800 mg PO Q8H PRN (Reason: pain) Qty: 30 RF: 0 sulfamethoxazole-trimethoprim [Bactrim DS] 800-160 mg tablet 1 tab PO BID 5 Days Qty: 10 RF: 0 ferrous sulfate [iron] 325 mg (65 mg iron) tablet 325 mg PO DAILY Qty: 20 RF: 0 No Action amoxicillin-pot clavulanate [Augmentin] 875 MG/125 MG tablet 875 mg PO BID Qty: 20 RF: 0 metronidazole [Flagyl] 500 MG tablet 500 mg PO TID Qty: 30 RF: 0 ibuprofen 800 MG tablet 800 mg PO TIDP PRNQty: 0 RF: 0 vit-iron fum-folic ac [Mynatal] 1 EACH capsule 1 cap PO QDAY Qty: 0 RF: 0 ibuprofen 800 MG tablet 800 mg PO Q8H Qty: 60 RF: 1 hydrocodone-acetaminophen 5 MG/325 MG tablet PO Q6H PRN PRNQty: 15 RF: 0 Referrals: Jolanta Arteaga MD [Non-Staff] - <Obdulia Mcgee DO - Last Filed: 03/27/19 18:51> Cosign ED Attending Cosjillianature Attestation: I was immediately available in the department for consultation. Documentation has been reviewed. I agree with assessment and plan.
[2019-03-27 14:08] LABS: Add Manual Diff / Slide Review NO; Basophils Absolute Auto 100 /uL (0-100); Eosinophils Absolute Auto 0 /uL (0-450); Eosinophils Percent Auto 0.6 % (2-4); Hematocrit 36.3 % (36-46); Hemoglobin 12.1 g/dL (12.0-16.0); Lymphocytes Absolute Auto 1700 /uL (1100-4500); Lymphocytes Percent Auto 22.7 % (25-40); Mean Corpuscular HGB Conc 33.3 % (30-36); Mean Corpuscular Hemoglobin 27.6 PG (26-34); Monocytes Absolute Auto 600 /uL (0-900); Monocytes Percent Auto 7.5 % (3-14); Neutrophils Absolute Auto 5100 /uL (1500-7000); Neutrophils Percent Auto 68.2 % (50-75); Platelet Count 215 X10^3/uL (150-400); Red Blood Cell Count 4.37 X10^6/uL (4.0-5.2); Red Cell Distribution Width 17.3 % (11.6-14.8); White Blood Cell Count 7.5 X10^3/uL (4.5-11.0)
[2019-03-27 14:19] LABS: Alanine Aminotransferase 11 IU/L (9-52); Albumin 4.9 g/dL (3.5-5.0); Albumin Globulin Ratio 1.4 (1.0-2.8); Alkaline Phosphatase 55 U/L (38-126); Aspartate Aminotransferase 17 IU/L (14-36); BUN Creatinine Ratio 14.3 (6-22); Bilirubin Total 0.6 mg/dL (0.2-1.3); Blood Urea Nitrogen 10 mg/dL (7-17); Calcium 9.8 mg/dL (8.4-10.2); Carbon Dioxide 26 mmol/L (22-32); Chloride 105 mmol/L (98-107); Estimated Glomerular Filt Rate > 60.0 mL/min (>60); Globulin 3.5 g/dL (1.7-4.1); Glucose 94 mg/dL (70-100); HEMOLYSIS < 15 (0-50); Lipase 161 U/L (23-300); Potassium 3.7 mmol/L (3.4-5.1); Sodium 143 mmol/L (137-145); Total Protein 8.4 g/dL (6.3-8.2)
[2019-03-27 14:27] VITALS: BP 124/72; PULSE 86; RESP 18; O2SAT 95
[2019-03-27 14:34] LABS: Iron 24 ug/dL (37-170)
[2019-03-27 14:36] LABS: HCG Quantitative /Beta subunit 212.77 mIU/mL
[2019-03-27 15:39] VITALS: BP 124/79; PULSE 61; RESP 16; O2SAT 100
== END 2019-03-27 15:55 | disposition home or self-care (01) ==
PROVIDERS: Emergency Medicine; Emergency Provider Internal Medicine
DX: N92.0 Excessive and frequent menstruation with regular cycle (principal); N30.00 Acute cystitis without hematuria
CPT/HCPCS: 36415; 76830; 76856; 80053; 81001; 81025; 83540; 83690; 84702; 85025; 86900; 86901; 87086; 99283; 99284

== ENCOUNTER → 2020-04-11 14:21 | Outpatient (CLI) | payer MEDICAID, OTHER, SELFPAY ==
--- NOTE | 2020-04-11 14:24 | DI.US.S_ITS ---
PROCEDURE: US OB <= 14 WEEKS FETUS INDICATIONS: INITIAL ULTRASOUND FOR DATING AND VIABILITY OUTSIDE/PRIOR DATING DATA: Last menstrual period (LMP): Unsure LMP-based estimated date of delivery (SARA): Unknown First dating scan (date and location): 04/11/20. Estimated date of delivery (SARA) from first dating scan: 10/28/20. TECHNIQUE: Real-time scanning was performed of the fetus and maternal pelvic organs, with image documentation. COMPARISON: [facility], CT, CT ABDOMEN PELVIS W CON, 04/01/2018, 18:31. FINDINGS: Embryo: A single live intrauterine is identified with cardiac motion detected at 162 beats per minute. An embryo is well visualized with a crown-rump length measuring 4.6 cm, which correlates with an estimated gestational age of 11 weeks 3 days. Given the small size of the embryo/fetus, the anatomic structures are not adequately evaluated. No gross abnormalities are identified. A small yolk sac was identified. The amount of amniotic fluid is within normal limits. No evidence of a subchorionic hemorrhage or fluid collection is appreciated. Maternal organs: Ovaries are not enlarged and appear to be within normal limits.. Limited images through the kidneys demonstrate no hydronephrosis. IMPRESSION: 1. Single live intrauterine at 11 weeks 3 days (sonographic SARA 10/28/20). 2. No subchorionic hemorrhage. Dictated by: Raul Oliva M.D. on 04/11/2020 at 14:47 Approved by: Raul Oliva M.D. on 04/11/2020 at 14:49
== END ==
PROVIDERS: PCP Family Medicine; Referring Provider Family Medicine; Visit Provider Family Medicine
DX: Z34.81 Encounter for supervision of other normal pregnancy, first trimester (principal); Z3A.11 11 weeks gestation of pregnancy
CPT/HCPCS: 76801

== ENCOUNTER → 2023-06-02 15:07 | Outpatient (CLI) | payer MEDICAID, OTHER, SELFPAY ==
--- NOTE | 2023-06-02 15:10 | DI.US.S_ITS ---
PROCEDURE: US PELVIC COMPLETE INDICATIONS: Amenorrhea, unspecified TECHNIQUE: Real-time scanning was performed of the pelvic organs, with image documentation. Additional endovaginal scanning was necessary due to incomplete visualization of the adnexal and endometrial structures by transabdominal scanning. COMPARISON: [facility], , US PELVIC COMPLETE, 03/27/2019, 14:08. FINDINGS: Uterus: Uterus is retroverted and normal in size at 8.6 x 5.4 x 4.9 cm. The myometrium is heterogeneous. The endometrium measures approximately 10 mm combined thickness. Ovaries: The right ovary measures 3.6 x 2.2 x 2.6 cm, with a calculated ovarian volume of 11 cc. The left ovary measures 3.6 x 2.6 x 1.8 cm, with a calculated ovarian volume of 9 cc. The ovaries have a normal sonographic appearance. Less than 12 follicles can be seen in each ovary. No adnexal masses are seen. Other: No pathologic free abdominal or pelvic fluid. IMPRESSION: Unremarkable pelvic ultrasound. Less than 12 follicles per ovary. We strive to produce accurate, complete, and clear reports of imaging services. To assist us in improving patient care, this report was composed using standard report templates and voice recognition software. Therefore, it may contain abnormal punctuation, insertions and/or omissions. Occasional wrong-word or sound-alike substitutions may occur. Though we review the report and make efforts to correct it, we do recommend that the report be read carefully in proper context to recognize any text inaccuracies. Dictated by: Kvng Juárez M.D. on 06/02/2023 at 16:27 Approved by: Kvng Juárez M.D. on 06/02/2023 at 16:28
== END ==
PROVIDERS: PCP Family Medicine; Referring Provider Nurse Practitioner Family; Visit Provider Nurse Practitioner Family
DX: N91.2 Amenorrhea, unspecified (principal)
CPT/HCPCS: 76830; 76856

== ENCOUNTER 2023-07-08 11:08 | Day surgery (SDC) | payer MEDICAID, OTHER, SELFPAY ==
[2023-07-02 12:34] VITALS: BMI 35.4
[2023-07-08] VITALS (9 sets, daily range): BP systolic 105–137; BP diastolic 68–84; PULSE 68–84; RESP 12–16; TEMP 36.2–36.6; O2SAT 91–97; BMI 35.4
[2023-07-08] MEDS: LACTATED RINGERS 1,000 ML 100 ML IV (11:25)
--- NOTE | 2023-07-08 12:40 | PM.PREOP ---
Pre-operative Note COVID-19 COVID-19 status: Not tested Interval Note History & Physical reviewed/Exam performed by Physician: Yes Changes to H&P: No ASA Class (for procedural sedation): III
[2023-07-08] MEDS: CEFAZOLIN 2 GM/100 ML PREMIX 100 ML IV (13:00)
--- NOTE | 2023-07-08 13:09 | SUR.OPER ---
Supine on padded OR bed, head on pillow, arms secured on padded arm boards at <90 degrees abduction, legs uncrossed, safety belt at thigh, tape over blanket over lower legs.
[2023-07-08] MEDS: BUPIVACAINE 0.5% (PF) 30 ML VIAL INJ (13:18)
--- NOTE | 2023-07-08 13:34 | PM.OP.1 ---
Operative Date/Time/Diagnoses Date of procedure: 07/08/23 Time of procedure: 13:34 Pre-op diagnosis: Epigastric hernia Post-op diagnosis: same Procedure & Clinicians Procedure: Epigastric hernia repair with mesh Same procedure as scheduled: Yes Surgeon: Prasanna Jarvis Measurement Coordinator: Pankaj Espino Operative Notes Procedure in detail: Ancef was administered. The patient was brought to the operating room, placed on the table in the supine position and general LMA anesthesia was induced. The abdomen was prepped and draped in the usual fashion. A time-out was performed. A 6 cm incision was made in the midline above the umbilicus. Dissection was carried down to the hernia sac. The hernia sac was freed from the fascial ring. The hernia appeared to contain only fat, possibly preperitoneal fat or falciform ligament. Once it was dissected free it was allowed drop back into the abdomen. The fascia was then closed transversely with multiple interrupted 0 Ethibond sutures. The subcutaneous adipose tissue was cleared off of the anterior sheath circumferentially about 2 cm in each direction. A piece of polypropylene mesh was trimmed to fit over the fascial closure and secured with Tisseel. Once the Tisseel was dry the subcutaneous adipose tissue was closed with interrupted 3-0 Vicryl sutures. The skin was closed with multiple interrupted 3-0 Vicryl dermal sutures followed by a running 4 Monocryl subcuticular closure. Steri-Strips were applied and an abdominal binder was applied. EBL: 10 mL Pankaj TRUJILLO provided assistance with exposure, retraction and closure of incisions. Post-operative Condition: stable Disposition: PACU
[2023-07-08] MEDS: HYDROCODONE/ACET 5/325 TABLET 1 TAB PO (14:34)
[2023-07-08] MEDS: ONDANSETRON 4 MG/2 ML INJ IV (14:34)
== END 2023-07-08 15:37 | disposition home or self-care (01) ==
PROVIDERS: PCP Nurse Practitioner Family; Referring Provider Surgery; Visit Provider Surgery
PROC: (CPT 49593; principal; 2023-07-08 12:15)
DX: K43.9 Ventral hernia without obstruction or gangrene (principal)
CPT/HCPCS: 49593; J0690; J1100; J1170; J2250; J2405; J2704; J3010; J3490

== ENCOUNTER 2024-06-06 12:52 | Emergency (ER) | payer MEDICAID, OTHER, SELFPAY ==
[2024-06-06 13:01] VITALS: BP 121/61; PULSE 62; RESP 16; TEMP 36.9; O2SAT 99; BMI 28.3
--- NOTE | 2024-06-06 13:16 | DI.US.S_ITS ---
PROCEDURE: US OB <= 14 WEEKS FETUS INDICATIONS: cramping/spotting 4-5wk per pt OUTSIDE/PRIOR DATING DATA: Last menstrual period (LMP): 04/12/2024. LMP-based estimated date of delivery (SARA): 01/17/2025. First dating scan (date and location): 06/06/2024. Estimated date of delivery (SARA) from first dating scan: 01/10/2025. TECHNIQUE: Real-time scanning was performed of the fetus and maternal pelvic organs, with image documentation. Endovaginal scanning was also performed to better visualize the fetus and maternal ovaries. COMPARISON: [facility], , OB <= 14 WEEKS FETUS, 04/11/2020, 14:36. FINDINGS: Embryo: [place]-rump length 2.2 cm corresponds with a 8 week 6 day gestation. Heart rate: 168 beats per minute. No evidence of subchorionic bleed Maternal organs: Ovaries remarkable. EGA by dates 7 week 6 day. IMPRESSION: Single live intrauterine consistent with a 8 week 6 day gestation by current ultrasound Approved by: Abhay Davidson M.D. on 06/06/2024 at 13:39
--- NOTE | 2024-06-06 13:19 | ED_ITS ---
HPI - Nausea/Vomiting/Diarrhea <Marianna Rankin PA-C - Last Filed: 06/06/24 15:53> General Chief complaint: Nausea/Vomiting/Diarrhea Stated complaint: weakness Time Seen by Provider: 06/06/24 13:13 History of Present Illness HPI Narrative: 34-year-old woman presents with concern for nausea and vomiting for the past week she believes associated with , her last menstrual period began in the beginning of April. She had a positive home test at about 4 weeks and then another positive test at a clinic. She states she did try a couple different times some vitamin B6 and was given Zofran once by her clinic but told it was not safe in . She states she did not have a problem with nausea and vomiting in in her previous pregnancies. She had 1 miscarriage previously and gave to twins. Patient states for the last couple of days she has been mostly in bed because she has been feeling weak and nauseous and has vomited when she has tried to eat or drink. Primarily these symptoms have been with eating she states when she tries to eat she often feels nauseous and then vomits. She states she has not dealt with morning sickness or nausea and vomiting of in her previous pregnancies. She states this morning she tried to eat some toast and vomited which prompted her to come into the ER for more assistance with her symptoms. She also notes she has had some occasional cramping and spotting stating that she has noticed a small amount of pinkish blood with wiping a few times in the last few weeks and also has had cramping specifically with sneezing and a couple times with leaning over. She also notes for about the past 4 days she feels she has been peeing less, she has not had any urgency or frequency increase simply notes that when she pees there is less coming out and it has been darker in color than usual. She has not had any discomfort with urination. She has reached out to provider about scheduling her 1st OB visit in the next few weeks. She denies cough, fevers, chills, flank pain, abdominal pain, sore throat, headaches or any other symptoms. Related Data Home Medications Medication Instructions Recorded Confirmed gabapentin 300 mg capsule 300 mg PO ONCE PM 07/08/23 07/08/23 Previous Rx's Medication Instructions Recorded hydrocodone 5 mg-acetaminophen 325 1 tab PO Q8H PRN pain #10 tabs 07/08/23 mg tablet tramadol 50 mg tablet 50 mg PO Q8H PRN pain #10 tabs 07/10/23 ondansetron 4 mg disintegrating 4 mg PO Q8H PRN nausea and 06/06/24 tablet vomiting #21 tabs pyridoxine (vitamin B6) 50 mg 25 mg (1/2 x 50 mg) PO BID Nausea 06/06/24 tablet and vomiting of #60 tabs Allergies Allergy/AdvReac Type Severity Reaction Status Date / Time No Known Drug Allergies Allergy Verified 06/06/24 13:05 Review of Systems <Marianna Rankin PA-C - Last Filed: 06/06/24 15:53> Review of Systems Narrative: See HPI Patient History <Marianna Rankin PA-C - Last Filed: 06/06/24 15:53> Medical History Restless leg syndrome Maternal blood transfusion (~2015) HSV-1 (herpes simplex virus 1) infection HSV (herpes simplex virus) anogenital infection History of iron deficiency anemia Healthy adult Surgical History Status post delivery (03/03/17) Status post delivery (~02/07/11) Social History household members: spouse Smoking Status: Former smoker substance use type: former substance user Smoking Status: Former smoker alcohol intake frequency: 0-2 drinks per day Substance Use Type: former substance user and marijuana Exam <Marianna Rankin PA-C - Last Filed: 06/06/24 15:53> Narrative Exam Narrative: GENERAL: [34] year old patient appears stated age. Well-developed patient, in mild distress. HEAD: Atraumatic. Normocephalic. EYES: Pupils equal round and reactive. Extraocular motions intact. No scleral icterus. No injection or drainage. ENT: Nose without bleeding, purulent drainage. Airway patent. NECK: Trachea midline. Non tender CARDIOVASCULAR: Regular rate and rhythm without murmurs, gallops, or rubs. RESPIRATORY: Clear to auscultation. Breath sounds equal bilaterally. No wheezes, rales, or rhonchi. GASTROINTESTINAL: Abdomen soft, non-tender, nondistended. EXTREMITIES: No edema or joint tenderness. NEURO: AOx3. SKIN: No rash or erythema of visible areas Initial Vital Signs Initial Vital Signs: Vital Signs Temperature 98.4 F 06/06/24 13:01 Pulse Rate 62 06/06/24 13:01 Respiratory Rate 16 06/06/24 13:01 Blood Pressure 121/61 06/06/24 13:01 Pulse Oximetry 99 06/06/24 13:01 Oxygen Delivery Method Room Air 06/06/24 13:01 <Jacqueline Weiner DO - Last Filed: 06/08/24 18:13> Initial Vital Signs Initial Vital Signs: Vital Signs Temperature 98.4 F 06/06/24 13:01 Pulse Rate 62 06/06/24 13:01 Respiratory Rate 16 06/06/24 13:01 Blood Pressure 121/61 06/06/24 13:01 Pulse Oximetry 99 06/06/24 13:01 Oxygen Delivery Method Room Air 06/06/24 13:01 Course <Marianna Rankin PA-C - Last Filed: 06/06/24 15:53> Orders Ordered: Discontinued Medications Sodium Chloride (Normal Saline 0.9%) 1,000 mls @ 1,000 mls/hr IV BOLUS ONE Stop: 06/06/24 14:31 Last Infusion: 06/06/24 14:35 Dose: Infused Documented By: Admin: 06/06/24 13:42 Dose: 1,000 mls/hr Documented By: MOHIT Ondansetron HCl (Ondansetron 4 Mg/2 Ml Inj) 4 mg IV NOW ONE Stop: 06/06/24 13:17 Last Admin: 06/06/24 13:23 Dose: 4 mg Documented By: MOHIT Potassium Chloride (Potassium Chloride 10 Meq Tab) 10 meq PO NOW ONE Stop: 06/06/24 14:26 Last Admin: 06/06/24 14:35 Dose: 10 meq Documented By: MOHIT Vital Signs Vital signs: Vital Signs - 8 hr 06/06/24 13:01 06/06/24 14:48 06/06/24 14:56 Temperature 98.4 F Pulse Rate 62 69 Respiratory Rate 16 Blood Pressure 121/61 118/63 Pulse Oximetry 99 99 Oxygen Delivery Method Room Air 06/06/24 15:00 06/06/24 15:15 Temperature 97.9 F Pulse Rate 78 82 Respiratory Rate 16 Blood Pressure 116/60 Pulse Oximetry 100 100 Oxygen Delivery Method Room Air <Jacqueline Weiner DO - Last Filed: 06/08/24 18:13> Orders Ordered: Discontinued Medications Sodium Chloride (Normal Saline 0.9%) 1,000 mls @ 1,000 mls/hr IV BOLUS ONE Stop: 06/06/24 14:31 Last Infusion: 06/06/24 14:35 Dose: Infused Documented By: Admin: 06/06/24 13:42 Dose: 1,000 mls/hr Documented By: MOHIT Ondansetron HCl (Ondansetron 4 Mg/2 Ml Inj) 4 mg IV NOW ONE Stop: 06/06/24 13:17 Last Admin: 06/06/24 13:23 Dose: 4 mg Documented By: MOHIT Potassium Chloride (Potassium Chloride 10 Meq Tab) 10 meq PO NOW ONE Stop: 06/06/24 14:26 Last Admin: 06/06/24 14:35 Dose: 10 meq Documented By: MOHIT Vital Signs Vital signs: Vital Signs - 8 hr 06/06/24 13:01 06/06/24 14:48 06/06/24 14:56 Temperature 98.4 F Pulse Rate 62 69 Respiratory Rate 16 Blood Pressure 121/61 118/63 Pulse Oximetry 99 99 Oxygen Delivery Method Room Air 06/06/24 15:00 06/06/24 15:15 Temperature 97.9 F Pulse Rate 78 82 Respiratory Rate 16 Blood Pressure 116/60 Pulse Oximetry 100 100 Oxygen Delivery Method Room Air MDM - Nausea/Vomiting/Diarrhea <Marianna Rankin PA-C - Last Filed: 06/06/24 15:53> Differential Diagnosis Differential diagnosis: Likely dehydration and other (Nausea and vomiting of , 1st trimester ) Lab Data Attestation: I reviewed the patient's lab results. 06/06/24 13:15 06/06/24 13:15 Labs: Lab Results 06/06/24 06/06/24 Range/Units 13:15 14:06 WBC 11.4 H (4.5-11.0) X10^3/uL RBC 4.81 (4.0-5.2) X10^6/uL Hgb 13.6 (12.0-16.0) g/dL Hct 40.2 (36-46) % MCV 83.7 (80-100) fL MCH 28.3 (26-34) PG MCHC 33.8 (30-36) % RDW 16.3 H (11.6-14.8) % Plt Count 255 (150-400) X10^3/uL Neut % (Auto) 80.1 H (50-75) % Lymph % (Auto) 13.2 L (25-40) % [place] % (Auto) 4.3 (3-14) % Eos % (Auto) 0.1 L (2-4) % Baso % (Auto) 2.3 H (0-2) % Neut # (Auto) 9100 H (6136-8860) /uL Lymph # (Auto) 1500 (1582-6336) /uL [place] # (Auto) 500 (0-900) /uL Eos # (Auto) 0 (0-450) /uL Baso # (Auto) 300 H (0-100) /uL Sodium 134 L (137-145) mmol/L Potassium 3.3 L (3.4-5.1) mmol/L Chloride 101 (98-107) mmol/L Carbon Dioxide 22 (22-32) mmol/L BUN 7 (7-17) mg/dL Creatinine 0.51 L (0.52-1.04) mg/dL Estimated GFR > 60 (>60) mL/min BUN/Creatinine Ratio 13.7 (6-22) Glucose 87 (70-100) mg/dL Calcium 9.3 (8.4-10.2) mg/dL Total Bilirubin 1.1 (0.2-1.3) mg/dL AST 37 H (14-36) IU/L ALT 44 H (<35) IU/L Alkaline Phosphatase 95 (38-126) U/L Total Protein 8.3 H (6.3-8.2) g/dL Albumin 4.5 (3.5-5.0) g/dL Globulin 3.8 (1.7-4.1) g/dL Albumin/Globulin Ratio 1.2 (1.0-2.8) Lipase 191 (23-300) U/L HCG, Quant 969379 mIU/mL Urine Color Yellow Urine Appearance Slightly cloudy Urine pH 6.0 (4.5-8.0) Ur Specific [place] >=1.030 H (1.000-1.035) Urine Protein 1+ H (Negative) Urine Glucose (UA) Negative (Negative) g/dL Urine Ketones 3+ H (NEGATIVE) Urine Occult Blood Trace-intact (Negative) Urine Nitrate Negative (Negative) Urine Bilirubin 2+ H (NEGATIVE) Ur Bilirubin Confirm Positive H (Negative) Urine Urobilinogen >=8.0 (0.2) E.U./dL Ur Leukocyte Esterase Negative (NEGATIVE) Urine RBC 1-5/hpf D (0-5/HPF) Urine WBC 0-1/hpf (0-5/HPF) Ur Squamous Epith Cells 1-5 /hpf (0-5/HPF) Urine Bacteria Few (2-10) H (None) Ur Culture Indicated? Cult not indicated Vol Urine Centrifuged 10ml (spun) Imaging Data US - OB: My Impression: Agree with Radiology interpretation Radiologist's Impression: [address] [address] Ultrasound Report Signed Patient: Bisi [place] MR#: [id number] : 1990 Acct:[id number] Age/Sex: 34 / F Date of Service: 06/06/24 Loc: ED Accession Number: [id number] Procedure: US OB <= 14 weeks fetus Ordering Provider: Marianna Rankin PA-C PROCEDURE: US OB <= 14 WEEKS FETUS INDICATIONS: cramping/spotting 4-5wk per pt OUTSIDE/PRIOR DATING DATA: Last menstrual period (LMP): 04/12/2024. LMP-based estimated date of delivery (SARA): 01/17/2025. First dating scan (date and location): 06/06/2024. Estimated date of delivery (SARA) from first dating scan: 01/10/2025. TECHNIQUE: Real-time scanning was performed of the fetus and maternal pelvic organs, with image documentation. Endovaginal scanning was also performed to better visualize the fetus and maternal ovaries. COMPARISON: [facility], US OB <= 14 WEEKS FETUS, 04/11/2020, 14:36. FINDINGS: Embryo: [place]-rump length 2.2 cm corresponds with a 8 week 6 day gestation. Heart rate: 168 beats per minute. No evidence of subchorionic bleed Maternal organs: Ovaries remarkable. EGA by dates 7 week 6 day. IMPRESSION: Single live intrauterine consistent with a 8 week 6 day gestation by current ultrasound Approved by: Abhay Davidson M.D. on 06/06/2024 at 13:39 MDM Narrative Medical decision making narrative: This is a well-appearing 34-year-old woman with LMP of 04/12/2024 presenting with concern for with nausea and vomiting. Patient also initially endorsed cramping and spotting however these symptoms have been very mild and no heavy bleeding. Ultrasound was obtained for further evaluation which returned showing a single live IUP with a heartbeat of 168 and appropriate crown rump length for 8 weeks 6 days' gestation. Labs were obtained to include CBC, CMP, lipase and hCG quant, these showed she has a very mild hypokalemia with potassium of 3.3 this was supplemented today with 10 mEq oral, we also evaluated her urine due to concern that she has not been peeing as much recently, no evidence of a UTI, bilirubin present in urine 1+ however her liver functions are within normal range. Lipase was unremarkable and she did receive a L of NS fluids today as well as IV Zofran which improved her symptoms. She was able to tolerate p.o. intake of fluids without difficulty and without persistent vomiting. She is advised to take pyridoxine consistently, try lozenges mid or vanda to help with her symptoms and use Zofran as a backup if this is not effective in controlling her nausea and vomiting symptoms. Prescription for both pyridoxine and Zofran today. She does have a plan to see OB in the next 1-2 weeks. Did discuss this patient with Dr. Weiner, attending physician in the emergency department today. Return precautions provided, follow-up plan discussed, all questions answered. <Jacqueline Weiner, DO - Last Filed: 06/08/24 18:13> Lab Data Labs: Lab Results 06/06/24 06/06/24 Range/Units 13:15 14:06 WBC 11.4 H (4.5-11.0) X10^3/uL RBC 4.81 (4.0-5.2) X10^6/uL Hgb 13.6 (12.0-16.0) g/dL Hct 40.2 (36-46) % MCV 83.7 (80-100) fL MCH 28.3 (26-34) PG MCHC 33.8 (30-36) % RDW 16.3 H (11.6-14.8) % Plt Count 255 (150-400) X10^3/uL Neut % (Auto) 80.1 H (50-75) % Lymph % (Auto) 13.2 L (25-40) % [place] % (Auto) 4.3 (3-14) % Eos % (Auto) 0.1 L (2-4) % Baso % (Auto) 2.3 H (0-2) % Neut # (Auto) 9100 H (7592-2673) /uL Lymph # (Auto) 1500 (5136-8562) /uL [place] # (Auto) 500 (0-900) /uL Eos # (Auto) 0 (0-450) /uL Baso # (Auto) 300 H (0-100) /uL Sodium 134 L (137-145) mmol/L Potassium 3.3 L (3.4-5.1) mmol/L Chloride 101 (98-107) mmol/L Carbon Dioxide 22 (22-32) mmol/L BUN 7 (7-17) mg/dL Creatinine 0.51 L (0.52-1.04) mg/dL Estimated GFR > 60 (>60) mL/min BUN/Creatinine Ratio 13.7 (6-22) Glucose 87 (70-100) mg/dL Calcium 9.3 (8.4-10.2) mg/dL Total Bilirubin 1.1 (0.2-1.3) mg/dL AST 37 H (14-36) IU/L ALT 44 H (<35) IU/L Alkaline Phosphatase 95 (38-126) U/L Total Protein 8.3 H (6.3-8.2) g/dL Albumin 4.5 (3.5-5.0) g/dL Globulin 3.8 (1.7-4.1) g/dL Albumin/Globulin Ratio 1.2 (1.0-2.8) Lipase 191 (23-300) U/L HCG, Quant 804273 mIU/mL Urine Color Yellow Urine Appearance Slightly cloudy Urine pH 6.0 (4.5-8.0) Ur Specific [place] >=1.030 H (1.000-1.035) Urine Protein 1+ H (Negative) Urine Glucose (UA) Negative (Negative) g/dL Urine Ketones 3+ H (NEGATIVE) Urine Occult Blood Trace-intact (Negative) Urine Nitrate Negative (Negative) Urine Bilirubin 2+ H (NEGATIVE) Ur Bilirubin Confirm Positive H (Negative) Urine Urobilinogen >=8.0 (0.2) E.U./dL Ur Leukocyte Esterase Negative (NEGATIVE) Urine RBC 1-5/hpf D (0-5/HPF) Urine WBC 0-1/hpf (0-5/HPF) Ur Squamous Epith Cells 1-5 /hpf (0-5/HPF) Urine Bacteria Few (2-10) H (None) Ur Culture Indicated? Cult not indicated Vol Urine Centrifuged 10ml (spun) Discharge Plan Departure Patient Disposition: Home Clinical Impression: Nausea and vomiting in Activity Restrictions/Additional Instructions: *You have been diagnosed with [ ] *What to do: *Please continue to take your regular medications as directed. [2 ] New medication prescriptions sent to your pharmacy: [Pyridoxine, Zofran] [ ] New medication written as a paper prescription [ ] No new medications given *Please follow up with your primary care provider in 2-3 days, call for an appointment. Let them know you were seen in the Emergency Department and that we ask that you be seen in follow up. We will electronically transmit a record of today's note if your PCP is in our system. Regarding your nausea and vomiting, please continue to work on small sips of fluids and very simple small meals, you should continue taking the vitamin B6 you can obtain this [id number] but I did send in a prescription for this as well so hopefully it will be covered. I have also prescribed Zofran to be used if needed if your symptoms are not controlled enough with the vitamin B6/pyridoxine. You should also try things like vanda or mint tea or lozenges sometimes this can help with nausea. It is most important that you stay hydrated. Your potassium levels were just slightly low today and we did give you 1 dose of oral potassium to supplement this. If you are getting some food and fluids in taking a multivitamin this should help. Your hCG level today was over 245,000 which is consistent with your stage of , we also did an ultrasound as you had mentioned some cramping and spotting, this shows a fetus at 8 weeks and 6 days with a heartbeat of rate of 168 which is normal. The size seen on ultrasound is consistent with your duration of with your last menses being 04/12/2024. Follow-up with your OB provider as planned. I hope you feel better soon *If you do not have a primary care provider please contact the [facility] Resource line at [phone]. They will ask some questions about your medical history and help get you set up with a doctor in the community. *Return to Emergency Department if you should have any new, worsening or concerning symptoms, such as [fever greater than 101 F, shaking chills, worsening pain, persistent vomiting or other bothersome symptoms] Prescriptions: New pyridoxine (vitamin B6) 50 mg tablet 25 mg PO BID Qty: 60 2RF ondansetron 4 mg tablet,disintegrating 4 mg PO Q8H PRN (Reason: nausea and vomiting ) Qty: 21 1RF No Action tramadol 50 mg tablet 50 mg PO Q8H PRN (Reason: pain) Qty: 10 0RF gabapentin 300 mg capsule 300 mg PO ONCE PM hydrocodone-acetaminophen 5-325 mg tablet 1 tab PO Q8H PRN (Reason: pain) Qty: 10 0RF Referrals: Daniele Trinh [Primary Care Provider] - Stand Alone Forms: Patient Portal/API ED Sign-out <Jacqueline Weiner DO - Last Filed: 06/08/24 18:13> Cosign ED Attending Jeremy Attestation: I was immediately available in the department for consultation.
[2024-06-06] MEDS: ONDANSETRON 4 MG/2 ML INJ IV (13:23)
[2024-06-06] MEDS: SODIUM CHLORIDE 0.9% 1,000 ML 1000 ML IV (13:42)
[2024-06-06 13:46] LABS: Alanine Aminotransferase 44 IU/L (<35); Albumin 4.5 g/dL (3.5-5.0); Albumin Globulin Ratio 1.2 (1.0-2.8); Alkaline Phosphatase 95 U/L (38-126); Aspartate Aminotransferase 37 IU/L (14-36); BUN Creatinine Ratio 13.7 (6-22); Bilirubin Total 1.1 mg/dL (0.2-1.3); Blood Urea Nitrogen 7 mg/dL (7-17); Calcium 9.3 mg/dL (8.4-10.2); Carbon Dioxide 22 mmol/L (22-32); Chloride 101 mmol/L (98-107); Estimated Glomerular Filt Rate > 60 mL/min (>60); Globulin 3.8 g/dL (1.7-4.1); Glucose 87 mg/dL (70-100); HEMOLYSIS 16 (0-50); Lipase 191 U/L (23-300); Potassium 3.3 mmol/L (3.4-5.1); Sodium 134 mmol/L (137-145); Total Protein 8.3 g/dL (6.3-8.2)
[2024-06-06 13:48] LABS: Add Manual Diff / Slide Review NO; Basophils Absolute Auto 300 /uL (0-100); Basophils Percent Auto 2.3 % (0-2); Eosinophils Absolute Auto 0 /uL (0-450); Eosinophils Percent Auto 0.1 % (2-4); Hematocrit 40.2 % (36-46); Hemoglobin 13.6 g/dL (12.0-16.0); Lymphocytes Absolute Auto 1500 /uL (1100-4500); Lymphocytes Percent Auto 13.2 % (25-40); Mean Corpuscular HGB Conc 33.8 % (30-36); Mean Corpuscular Hemoglobin 28.3 PG (26-34); Mean Corpuscular Volume 83.7 fL (80-100); Monocytes Absolute Auto 500 /uL (0-900); Monocytes Percent Auto 4.3 % (3-14); Neutrophils Absolute Auto 9100 /uL (1500-7000); Neutrophils Percent Auto 80.1 % (50-75); Platelet Count 255 X10^3/uL (150-400); Red Blood Cell Count 4.81 X10^6/uL (4.0-5.2); Red Cell Distribution Width 16.3 % (11.6-14.8); White Blood Cell Count 11.4 X10^3/uL (4.5-11.0)
[2024-06-06 14:13] LABS: Bilirubin Urine UA 2+ (NEGATIVE); Color Urine UA YELLOW; Glucose Urine UA NEGATIVE (Negative); Ketones Urine UA 3+ (NEGATIVE); Leukocyte Esterase Urine UA NEGATIVE (NEGATIVE); Nitrite Urine UA NEGATIVE (Negative); Occult Blood Urine UA TRACE-INTACT (Negative); Protein Urine UA 1+ (Negative); Specific Gravity Urine UA >=1.030 (1.000-1.035); Urobilinogen Urine UA >=8.0 E.U./dL (0.2)
[2024-06-06 14:22] LABS: Appearance Urine UA Slightly Cloudy
[2024-06-06 14:23] LABS: Ictotest Urine Positive (Negative); Urine Volume 10mL (spun)
[2024-06-06 14:24] LABS: Bacteria Urine Few (2-10); Culture Indicated Urine Cult Not Indicated; RBC Urine 1-5/HPF (0-5/HPF); Squamous Epithelial Cell Urine 1-5 /HPF (0-5/HPF); WBC Urine 0-1/HPF (0-5/HPF)
[2024-06-06] MEDS: POTASSIUM CHLORIDE 10 MEQ TAB PO (14:35)
[2024-06-06 14:37] LABS: HCG Quantitative /Beta subunit 245190 mIU/mL
[2024-06-06 14:48] VITALS: BP 118/63
[2024-06-06 14:56] VITALS: PULSE 69; O2SAT 99
[2024-06-06 15:00] VITALS: PULSE 78; O2SAT 100
[2024-06-06 15:15] VITALS: BP 116/60; PULSE 82; RESP 16; TEMP 36.6; O2SAT 100
== END 2024-06-06 15:15 | disposition home or self-care (01) ==
PROVIDERS: Emergency Provider Student in an Organized Health Care Education/Training Program; PCP Nurse Practitioner Family
DX: O21.9 Vomiting of pregnancy, unspecified (principal); Z3A.08 8 weeks gestation of pregnancy
CPT/HCPCS: 36415; 76801; 80053; 81001; 83690; 84702; 85025; 96361; 96374; 99284; J2405

== ENCOUNTER → 2024-06-15 14:10 | Outpatient (CLI) | payer OTHER, SELFPAY | PROVIDERS: PCP Nurse Practitioner Family; Visit Provider Obstetrics & Gynecology | DX: Z34.90 Encounter for supervision of normal pregnancy, unspecified, unspecified trimester (principal) | CPT/HCPCS: 87491; 87563; 87591 ==

== ENCOUNTER → 2024-08-03 14:41 | Outpatient (CLI) | payer MEDICAID, OTHER, SELFPAY ==
[2024-08-03 15:29] LABS: Add Manual Diff / Slide Review NO; Basophils Absolute Auto 0 /uL (0-100); Basophils Percent Auto 0.4 % (0-2); Eosinophils Absolute Auto 100 /uL (0-450); Hematocrit 31.9 % (36-46); Hemoglobin 11.1 g/dL (12.0-16.0); Lymphocytes Absolute Auto 2700 /uL (1100-4500); Lymphocytes Percent Auto 29.6 % (25-40); Mean Corpuscular HGB Conc 34.7 % (30-36); Mean Corpuscular Hemoglobin 29.2 PG (26-34); Mean Corpuscular Volume 84.3 fL (80-100); Monocytes Absolute Auto 500 /uL (0-900); Monocytes Percent Auto 5.6 % (3-14); Neutrophils Absolute Auto 5700 /uL (1500-7000); Neutrophils Percent Auto 63.4 % (50-75); Platelet Count 260 X10^3/uL (150-400); Red Blood Cell Count 3.79 X10^6/uL (4.0-5.2); Red Cell Distribution Width 15.3 % (11.6-14.8); White Blood Cell Count 9.1 X10^3/uL (4.5-11.0)
[2024-08-03 19:38] LABS: UR Morphine/Opiate cutoff 300 Negative (Negative); Ur Creatinine Normal (Normal); Ur Specific Gravity Normal (Normal); Urine Amphetamines Negative (Negative); Urine Barbiturates Negative (Negative); Urine Benzodiazepines Negative (Negative); Urine Cocaine Negative (Negative); Urine MDMA Negative (Negative); Urine Methadone Positive (Negative); Urine Methamphetamines Negative (Negative); Urine Oxycodone Negative (Negative); Urine Phencyclidine Negative (Negative); Urine Tetrahydrocannabinol Positive (Negative); Urine Tricyclic Antidepressant Negative (Negative); Urine pH Normal (Normal)
== END ==
PROVIDERS: PCP Nurse Practitioner Family; Referring Provider Obstetrics & Gynecology; Visit Provider Obstetrics & Gynecology
DX: Z34.82 Encounter for supervision of other normal pregnancy, second trimester (principal); Z64.1 Problems related to multiparity; Z3A.17 17 weeks gestation of pregnancy
CPT/HCPCS: 36415; 80055; 80305; 86787; 86803; 86850; 86900; 86901; 87086; 87389

== ENCOUNTER → 2024-08-18 07:19 | Outpatient (CLI) | payer OTHER, MEDICAID, SELFPAY ==
--- NOTE | 2024-08-18 07:20 | DI.US.S_ITS ---
PROCEDURE: US OB >= 14 WEEKS FETUS INDICATIONS: 20 week anatomy scan OUTSIDE/PRIOR DATING DATA: Last menstrual period (LMP): 04/12/2024. LMP-based estimated date of delivery (SARA): 01/17/2025. First dating scan (date and location): 06/06/2024. Estimated date of delivery (SARA) from first dating scan: 01/10/2025. The calculations are made using the sonographic SARA of 01/10/2025. TECHNIQUE: Real-time scanning was performed of the fetus, with image documentation and biometric measurements. Endovaginal scanning: Not performed COMPARISON: None. FINDINGS: General: A single living intrauterine gestation is present. Presentation: Transverse. Placenta: Placental position is posterior , without previa. Amniotic fluid index: 8.8 cm, normal range is 5-24 cm. Single deepest vertical pocket is 3.3 cm. heart rate: 150 beats per minute. Maternal cervical canal: 3.6 cm long. Normal lower limit is 2.5 cm. biometrics: Biparietal diameter: 4.1 cm, 18 weeks 3 days Head circumference: 15.9 cm, 18 weeks 5 days Abdominal circumference: 14.6 cm, 20 weeks Femur length: 3.0 cm, 19 weeks 1 day Clinically estimated gestational age: 19 weeks 2 days Composite gestational age from present scan: 19 weeks 1 day Estimated weight and percentile: 294 g, 56 percentile Anatomic survey: Neuro: Ventricles are non-dilated at less than 10 mm. Cisterna magna is normal at 3-11 mm. Cerebellum is normal in size and morphology. Nuchal skin fold: Normal at less than 6 mm between 14-21 weeks gestational age. Face: Not well visualized due to position. Spine: No evidence for spina bifida. Heart: Not well visualized due to position. Diaphragm: Diaphragm is intact. Stomach: Left-sided stomach is present. Kidneys: No hydronephrosis. Normal is less than 5 mm in 2nd trimester, less than 7 mm in 3rd trimester. Cord: 3-vessel cord has orthotopic insertion. Bladder: Normal in size. Extremities: All 4 extremities identified. IMPRESSION: Single living intrauterine at 19 weeks 2 days, SARA of 01/10/2025. Estimated weight 294 g, 56th percentile. Facial profile and heart not well visualized due to position. Short-term follow-up should be considered. ROYAL of 8.8 cm. We strive to produce accurate, complete, and clear reports of imaging services. To assist us in improving patient care, this report was composed using standard report templates and voice recognition software. Therefore, it may contain abnormal punctuation, insertions and/or omissions. Occasional wrong-word or sound-alike substitutions may occur. Though we review the report and make efforts to correct it, we do recommend that the report be read carefully in proper context to recognize any text inaccuracies. Dictated by: Kvng Juárez M.D. on 08/18/2024 at 16:26 Approved by: Kvng Juárez M.D. on 08/18/2024 at 16:29
== END ==
PROVIDERS: PCP Nurse Practitioner Family; Referring Provider Obstetrics & Gynecology; Visit Provider Obstetrics & Gynecology
DX: Z34.82 Encounter for supervision of other normal pregnancy, second trimester (principal); Z3A.19 19 weeks gestation of pregnancy
CPT/HCPCS: 76811

== ENCOUNTER → 2024-08-24 15:55 | Outpatient (CLI) | payer OTHER, MEDICAID, SELFPAY | PROVIDERS: PCP Nurse Practitioner Family; Referring Provider Obstetrics & Gynecology; Visit Provider Obstetrics & Gynecology | DX: Z64.1 Problems related to multiparity (principal) | CPT/HCPCS: 36415; 82105 ==

== ENCOUNTER → 2024-11-15 16:46 | Outpatient (CLI) | payer OTHER, SELFPAY ==
--- NOTE | 2024-11-15 16:47 | DI.US.S_ITS ---
PROCEDURE: US OB FOLLOW UP INDICATIONS: Growth and follow up incomplete facial features OUTSIDE/PRIOR DATING DATA: Last menstrual period (LMP): 04/12/2024. LMP-based estimated date of delivery (SARA): 01/18/2020. First dating scan (date and location): 06/06/2024. Estimated date of delivery (SARA) from first dating scan: 01/10/2025. The calculations are made using the ultrasound SARA of 01/10/2025. TECHNIQUE: Real-time scanning was performed of the fetus, with image documentation and biometric measurements. COMPARISON: [facility], OB >= 14 WEEKS FETUS, 08/18/2024, 8:51. FINDINGS: General: A single living intrauterine gestation is present. Presentation: Vertex. Placenta: Placental position is posterior , without previa. Amniotic fluid index: 8.2 cm, normal range is 5-24 cm. Single deepest vertical pocket is 4.1 cm. heart rate: 120 beats per minute. Maternal cervical canal: 5 9 cm long. Normal lower limit is 2.5 cm. biometrics: Biparietal diameter: 7.3 cm 29 weeks 2 days Head circumference: 26.9 cm 29 weeks 2 days Abdominal circumference: 20.3 cm 32 weeks 2 days Femur length: 5.8 cm 30 weeks 3 days Clinically estimated gestational age: 32 weeks 0 days Composite gestational age from present scan: 30 weeks 2 days Estimated weight and percentile: 1715 g, 17th percentile Other: Facial profile is not well seen. IMPRESSION: Single live intrauterine with ultrasound gestational age today of 30 weeks 0 days. profile remain suboptimally evaluated secondary to positioning. Interval follow-up as indicated. We strive to produce accurate, complete, and clear reports of imaging services. To assist us in improving patient care, this report was composed using standard report templates and voice recognition software. Therefore, it may contain abnormal punctuation, insertions and/or omissions. Occasional wrong-word or sound-alike substitutions may occur. Though we review the report and make efforts to correct it, we do recommend that the report be read carefully in proper context to recognize any text inaccuracies. Dictated by: Janessa Ba M.D. on 11/16/2024 at 21:43 Approved by: Janessa Ba M.D. on 11/16/2024 at 21:45
== END ==
PROVIDERS: PCP Nurse Practitioner Family; Referring Provider Obstetrics & Gynecology; Visit Provider Obstetrics & Gynecology
DX: Z34.83 Encounter for supervision of other normal pregnancy, third trimester (principal); Z3A.30 30 weeks gestation of pregnancy
CPT/HCPCS: 76816

== ENCOUNTER 2024-12-28 15:08 | Outpatient (CLI) | payer OTHER, SELFPAY | END 2024-12-28 16:08 | disposition home or self-care (01) | LOC: LABOR 15:29 → OB 12-29 14:11 | PROVIDERS: PCP Nurse Practitioner Family; Referring Provider Obstetrics & Gynecology; Visit Provider Obstetrics & Gynecology | DX: O99.323 Drug use complicating pregnancy, third trimester (principal); F11.90 Opioid use, unspecified, uncomplicated; Z3A.38 38 weeks gestation of pregnancy | CPT/HCPCS: 59025; G0378; G0379 ==

== ENCOUNTER 2024-12-30 05:46 | Inpatient (IN) | payer OTHER, SELFPAY ==
[2024-12-30 06:03] LABS: Ur Creatinine Normal (Normal); Ur Specific Gravity Normal (Normal); Urine pH Normal (Normal)
[2024-12-30 06:04] LABS: UR Morphine/Opiate cutoff 300 Negative (Negative); Urine Amphetamines Negative (Negative); Urine Barbiturates Negative (Negative); Urine Benzodiazepines Negative (Negative); Urine Cocaine Negative (Negative); Urine MDMA Negative (Negative); Urine Methadone Positive (Negative); Urine Methamphetamines Negative (Negative); Urine Oxycodone Negative (Negative); Urine Phencyclidine Negative (Negative); Urine Tetrahydrocannabinol Positive (Negative); Urine Tricyclic Antidepressant Negative (Negative)
[2024-12-30 06:24] VITALS: BP 120/74
[2024-12-30] MEDS: LACTATED RINGERS 1,000 ML 999 ML IV (06:29)
[2024-12-30] MEDS: CITRIC ACID/SODIUM CITRATE 15 ML SOLUTION 30 ML PO (06:32)
[2024-12-30 06:34] LABS: Add Manual Diff / Slide Review NO; Basophils Absolute Auto 100 /uL (0-100); Basophils Percent Auto 0.8 % (0-2); Eosinophils Absolute Auto 0 /uL (0-450); Eosinophils Percent Auto 0.5 % (2-4); Hematocrit 31.4 % (36-46); Hemoglobin 10.4 g/dL (12.0-16.0); Lymphocytes Absolute Auto 3000 /uL (1100-4500); Lymphocytes Percent Auto 31.2 % (25-40); Mean Corpuscular HGB Conc 33.1 % (30-36); Mean Corpuscular Hemoglobin 26.7 PG (26-34); Mean Corpuscular Volume 80.6 fL (80-100); Monocytes Absolute Auto 400 /uL (0-900); Monocytes Percent Auto 4.4 % (3-14); Neutrophils Absolute Auto 6100 /uL (1500-7000); Neutrophils Percent Auto 63.1 % (50-75); Platelet Count 392 X10^3/uL (150-400); Red Cell Distribution Width 17.2 % (11.6-14.8); White Blood Cell Count 9.7 X10^3/uL (4.5-11.0)
--- NOTE | 2024-12-30 07:19 | P.HPOB_ITS ---
OB HPI Date/Time Date of admission: 12/30/24 Date Patient Seen: 12/30/24 History of Present Condition Chief complaint: Prior CS x 3 SARA Calculator 2 Estimated Delivery Date Method Current WG Current Estimate 01/10/25 Ultrasound #1 38w 3d Other Estimates 01/17/25 LMP (Uncertain) 37w 3d Estimated Gestational Age (weeks): 38+3 : 9 Para: 6 Narrative: Prior x3 care: limited care Dating criteria OB: based on 1st trimester US only Ultrasounds: normal 1st trimester US and normal mid trimester US Obstetrical complications: none Medical complications OB: other (History of opioid addiction, on methadone maintenance) Indications Operative indications ( section): previous uterine surgery Preadmission Labs Last OB Lab Results: 2 Blood Type A Positive 08/03/24 14:46 Antibody Screen Negative 08/03/24 14:46 Hct 31.4 % (36-46) L 12/30/24 06:25 Hgb 10.4 g/dL (12.0-16.0) L 12/30/24 06:25 Hep Bs Antigen Negative s/c (NEGATIVE) 08/03/24 14:46 Hepatitis C Antibody Negative s/c (NEGATIVE) 08/03/24 14:46 Rubella Antibody 14.1 IU/mL (>15) L 08/03/24 14:46 VZV IgG Antibody Reactive (Non Reactive) 08/03/24 14:46 Group B Strep (PCR) Negative for GBS (Negative-) 01/30/17 14:13 -: Chlamydia screen: negative, Gonorrhea screen: negative and Urine: negative -: PAP smear: Normal External Labs -: Urine: negative Prior (ies) Past Pregnancies Del. Date GA/Weeks Labor Lgth Wt Sex Route Outcome Anesthesia Place Delv Breastfeed Preg Comp Name 03/31/05 41 7 lb 9 oz Male vaginal live - full term epidur al IH 03/23/10 40 7 lb 10 oz Male vaginal live - full te rm epidural IH Dr Elizabeth 02/07/11 37 0 5 lb Female live - full term spinal IH Dr Elizabeth multiple gestation 02/07/11 37 0 4 lb Male live - full term spinal I H Dr Elizabeth multiple gestation 11/10/11 spontaneous [place] spontaneous 11/10/13 spontaneous [place] spontaneous 03/03/17 39 0 7 lb 13 oz Male live - full term spinal IH Dr Elizabeth 02/25/19 8 spontaneous [place] spontaneous Delivery Date: 11/10/11 Last Updated by: Tara Flor R.N. *Suction D&C Hx # Term Pregnancies: 5 Number of Living Children: 5 Evaluation Evaluation Baseline heart rate: 140 Variability: Average (6-10) monitor accelerations: Present Monitor Decelerations: Absent Category of Tracing: Reactive Status: Category l PFSH Medical History (Updated 10/01/24 @ 17:16 by Heydi Chaudhary DO) Ruptured tympanic membrane (~2021) Abnormal Pap smear of cervix (~2004) Twin Epigastric hernia Hematoma Wound hematoma following section, Wound infection after surgery Postoperative abdominal pain Postoperative ecchymosis Cephalgia Vaginal bleeding before 22 weeks gestation History of surgical site infection Under care of substance misuse service 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 Grandmother No problems noted. Social History marital status: number of children: 6 household members: spouse and children lives independently: Yes caregiver/support person: Yes pets and animals: No education level: college seatbelt use: always helmet use: Yes water heater temp set < 120 deg: No working smoke detector in home: Yes fire extinguisher in home: Yes carbon monox detector in home: Yes firearms in home: No do you feel safe at home: Yes Smoking Status: Former smoker alcohol intake: current substance use type: former substance user during the past year weight has: remained stable well-balanced diet: rarely or never daily servings fruits/ve-1 caffeine: Yes (presumably combination of soft drinks and coffee) eating out: 1-3 times/week duration: 15-30 minutes/day additional social history: PFSH section filled out based on answers provided on paper [facility] as patient did not answer any of the multiple calls for her telephone intake. Notably, some of her answers on paper are contrary to the records in our system, and in these cases (referring to smoking, substance use, and other historical rather than current questions), the older answers were left in place. Meds Home Medications and Allergies Home Medications Medication Instructions Recorded Confirmed Type ondansetron 4 mg disintegrating 4 mg PO Q8H PRN nausea and 06/06/24 12/28/24 Rx tablet vomiting #21 tabs pyridoxine (vitamin B6) 50 mg 25 mg (1/2 x 50 mg) PO BID Nausea 06/06/24 12/28/24 Rx tablet and vomiting of #60 tabs vitamin with calcium 1 tab PO DAILY 06/15/24 12/28/24 History no.72-iron 27 mg-folic acid 1 mg tablet (WesTab Plus) Allergies Allergy/AdvReac Type Severity Reaction Status Date / Time No Known Drug Allergies Allergy Verified 12/28/24 14:05 OB Exam Vital signs Blood Pressure: 153/74 Pulse Rate: 65 Respiratory Rate: 16 Temperature: 97.9 F HENMS Head: normal to inspection, normocephalic and atraumatic Eyes General: appearance normal, both eyes and all related structures Resp Effort & Inspection: normal respiratory effort and able to speak in complete sentences Auscultation: clear to auscultation bilaterally Cardio Rate: regular rate Rhythm: regular rhythm Heart Sounds: S1 normal, S2 normal and no murmurs Extremities Lower extremity: Yes normal to inspection GI Inspection: normal to inspection Palpation: Yes soft and Yes no hepatosplenomegaly Uterus Location (Fundal Height): 38 Presentation: vertex Estimated Weight (lbs): 7 Objective Labs 12/30/24 06:25 Labs: Laboratory Results - last 24 hr 12/30/24 12/30/24 05:55 06:25 WBC 9.7 RBC 3.90 L Hgb 10.4 L Hct 31.4 L MCV 80.6 MCH 26.7 MCHC 33.1 RDW 17.2 H Plt Count 392 Neut % (Auto) 63.1 Lymph % (Auto) 31.2 [place] % (Auto) 4.4 Eos % (Auto) 0.5 L Baso % (Auto) 0.8 Neut # (Auto) 6100 Lymph # (Auto) 3000 [place] # (Auto) 400 Eos # (Auto) 0 Baso # (Auto) 100 U Opiates 300ng/mL cut Negative Ur Oxycodone Screen Negative Urine Methadone Screen Positive H Ur Barbiturates Screen Negative U Tricyclic Antidepress Negative Ur Phencyclidine Scrn Negative Ur Amphetamines Screen Negative U Methamphetamines Scrn Negative Ur MDMA Scrn (Ecstasy) Negative U Benzodiazepines Scrn Negative Urine Cocaine Screen Negative U Marijuana (THC) Screen Positive H Urine pH Normal Urine Specific [place] Normal Ur Creatinine Normal Assessment and Plan Assessment and Plan Assessment and Plan narrative: ASSESSMENT 1. Intrauterine , 38+ 3 weeks gestational age 2. Grand multiparity 3. Prior section x3 4. History of opioid abuse, currently on methadone maintenance PLAN 1. Admit for repeat section 2. See admission orders Time-Based Coding :: 30 spent with patient and on the chart (including review of chart, obtaining history, exam, reviewing outside data, placing orders, documenting exam and treatment plan, and counseling patient) on 12/30/2024.
[2024-12-30 07:30] VITALS: BP 153/74; PULSE 65; RESP 16; TEMP 36.6
[2024-12-30] MEDS: LACTATED RINGERS 1,000 ML 42 ML IV ×2 (07:32→08:50)
--- NOTE | 2024-12-30 07:39 | PM.PREOP ---
Pre-operative Note COVID-19 COVID-19 status: Not tested Interval Note History & Physical reviewed/Exam performed by Physician: Yes Changes to H&P: No
[2024-12-30] MEDS: CEFAZOLIN 2 GM/100 ML PREMIX 100 ML IV (08:05)
[2024-12-30] MEDS: ACETAMINOPHEN IV 1,000 MG/100 ML VIAL 400 MG IV (08:10)
--- NOTE | 2024-12-30 08:32 | SUR.OPER ---
Supine on Padded OR bed, head on pillow, safety belt at thigh, arms secured on padded arm boards at <90 degrees abduction. Bump under right buttock. Legs uncrossed with pillow under knees, gel pad to heels, tape over blanket to lower legs.
[2024-12-30 09:29] VITALS: BP 128/78; PULSE 71; RESP 18; TEMP 36.1; O2SAT 100
[2024-12-30 09:34] VITALS: BP 123/64; PULSE 72; RESP 16; O2SAT 96
[2024-12-30 09:39] VITALS: BP 116/65; PULSE 72; RESP 16; TEMP 36.1; O2SAT 98
--- NOTE | 2024-12-30 09:48 | P.OP_ITS ---
Operative Date/Time/Diagnoses Date of procedure: 12/30/24 Time of procedure: 08:00 Pre-op diagnosis: Intrauterine gestation, 38+ 3 weeks gestational age Prior sections x3 Grand multiparity History of opioid abuse, currently on methadone maintenance Post-op diagnosis: same Procedure & Clinicians Procedure: Repeat section (low transverse cervical incision) Same procedure as scheduled: Yes Indications: Bisi is a 34-year-old who is admitted now at 38+ 3 weeks for repeat section. section is being performed prior to 39+ 0 weeks gestational age due to grand multiparity and ongoing methadone maintenance therapy. Surgeon: Jose Paz Retirement Plan Counselor: Heydi Chaudhary Reason for Retirement Plan Counselor: Retirement Plan Counselor required for the safe, effective, and timely completion of this surgery. Anesthesia Type: Spinal Operative Notes Findings: Viable female infant BW 2731 gms (6 lbs. 0.3 oz.), Apgars 9/9, delivered from the vertex presentation. Normal gravid anatomy with a thick adhesion between the left anterior surface of the mid uterine segment to the anterior abdominal. Closure Type: primary Specimen(s): cord blood Intraoperative meds administered: Ketorolac and Pitocin Applied: Catheter Estimated Blood Loss (mL): 800 Blood products transfused: none Procedure in detail: With her informed written consent, the patient was taken to the operating room and placed in the supine position for a repeat section procedure, for the indication(s) above. The abdomen was prepped and draped in the usual manner for section and a pre-surgical timeout was taken per [facility] OR protocol. Once effective anesthesia was confirmed, a 15 cm transverse Pfannenstiel incision was made in the skin and taken down through the subcutaneous tissues to the deep fascia. The deep fascia was incised transversely, the rectus abdominal eyes bluntly and sharply, and the peritoneal cavity entered without difficulty. The lower uterine segment was visualized and the position/presentation palpated. A transverse incision at or above the vesicouterine reflection was made with Metzenbaum scissors and transverse hysterotomy performed near the midline. Amniotomy revealed clear fluid. The incision was extended bilaterally with digital traction and the was delivered easily from the vertex presentation. The was vigorous and cord clamping delayed for 60 seconds. The placenta was delivered intact using gentle cord traction and fundal massage.The uterine cavity was then cleared of any clot/debris first with a sloppy wet lap tape followed by a dry lap tape. Ring forceps were then applied to the angles and the midline of the incised JOANN. A primary closure of the uterus was then accomplished with #1 CCGS in a running interlocking stitch followed by a 2nd layer of #1 CCGS in a running interlocking imbricating stitch. No additional sutures was/were required to achieve complete hemostasis. Once pelvic hemostasis was assured, the fascia closed with #1 Vicryl in a running stitch initiated at both angles and tying separately near the midline. The subcutaneous tissues were reapproximated with 2-0 plain catgut suture using inverted interrupted stitches. The skin edges were then brought together with 4-0 Monocryl in a subcuticular closure and the incision was reinforced with 1 Steri-Strips. An appropriate compression dressing was applied and the patient transferred to PACU for recovery and subsequent transfer to the Center for recuperation. Complications: none Baby 1: Delivery Date: 12/30/24 Delivery Time: 08:36 Infant Gender: Female Presentation: vertex Position: Left Occiput Anterior Placental Delivery Description: Spontaneous Cord Vessel Description: 3 Vessels score (1 min): 9 score (5 min): 9 weight: 6 lb 0.333 oz Post-operative Condition: stable Disposition: PACU Aftercare: routine postop
[2024-12-30] MEDS: METHADONE INTENSOL 10 MG/ML ORAL.CONC 47 MG PO ×2 (09:56→20:58)
[2024-12-30] MEDS: OXYCODONE IR 10 MG TABLET PO ×2 (11:19→17:46)
[2024-12-30] MEDS: LANOLIN OINT 7 GM 1 APPLIC TOP (11:19)
--- NOTE | 2024-12-30 13:19 | CM.SWNOTE ---
GUEST SERVICES ATTENDANT Note This GUEST SERVICES ATTENDANT requested for consult to complete an assessment of need w/MOB and FOB. MOB with known hx of substance use, tox + for THC and Methadone. Chart indicates this is ANITHA's 7th child. ANITHA gave via this morning. According to report from bedside nurse, no concerns at this time re MOB or FOB's ability to hoang to babygirl. Reportedly, MOB tends to give different pieces of information to different staff; it seems clarification would be helpful re psychsocial details, any social determinants of health, and potential discussion about community resources. 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 According to conversation at bedside with MOB and FOB Darvin Washington; ANITHA and FOB have been for many years, recently moved to [place] where they live in an apt with their other two young children (ages unknown). ANITHA reports she has 4 older children that live in [place] with their Dad. ANITHA is a [facility] member, admits to historical use of prescription drugs that she stopped using when she found out she was with dhara Conway. ANITHA is not forthcoming with information, states many times I have all that covered and I have figured all that out. With some prompting, ANITHA admits to this GUEST SERVICES ATTENDANT that she has told my story so many times to people I will never see again ANITHA hesitant to divulge details about her history unless I have to. ANITHA reports she has experience with CPS and that they are aware of dhara Conway. ANITHA reports she receives her Methadone maintenance through [facility] and has a counselor she trusts at [facility]. ANITHA denies historical or current suicidal ideation denies hx of suicide attempt. MOB and FOB deny need from this GUEST SERVICES ATTENDANT; state they have access to transportation, medical care, food, housing and have no issues paying rent or their bills. MOB and FOB have been working, MOB is on maternity leave, FOB will continue to work. This GUEST SERVICES ATTENDANT thanked MOB/FOB for their time and information shared. Updated RN with summary of above. See addtl note for CPS related information. Kacey Hernandez, FRITZ
--- NOTE | 2024-12-30 13:45 | CM.SWNOTE ---
NEWS INTERNSHIP Note- CPS Report Placed call to CPS intake, spoke with Kvng Marino. CPS Intake # [id number]. Reviewed MOB and FOB's information; explained babygirl Zoraida may be medically held longer than MOB due to Methadone use in utero and potential risk of withdrawal. MOB with known CPS involvement and is not in custody of 4 of her children. Kvng, CPS explains MOB has an assigned CPS worker; Glendy Og [phone]. Placed call to Glendy, according to our conversation; ANITHA has been engaging with CPS and has been compliant with urine screens and follow up at [facility]. This family recently moved to [place]. Glendy has visited this family's home and has provided a number of safety items that will help MOB/FOB bring babygirl home. Glendy has no initial concerns about this family returning home with babygirl. Glendy has a visit planned to see this family and meet kimberlyrphilippe tomorrow morning, 12/31 at 0900. This NEWS INTERNSHIP will plan to meet with Glendy upon her arrival. FRITZ Blanca
[2024-12-30] MEDS: ACETAMINOPHEN 325 MG TABLET 650 MG PO ×2 (14:05→20:12)
[2024-12-30] MEDS: KETOROLAC 30 MG/ML VIAL IV ×2 (15:14→22:05)
[2024-12-31] MEDS: ACETAMINOPHEN 325 MG TABLET 650 MG PO ×4 (02:15→20:52)
[2024-12-31] MEDS: OXYCODONE IR 10 MG TABLET PO ×4 (02:30→22:38)
[2024-12-31] MEDS: KETOROLAC 30 MG/ML VIAL IV (04:33)
[2024-12-31 06:44] LABS: Add Manual Diff / Slide Review NO; Basophils Absolute Auto 100 /uL (0-100); Basophils Percent Auto 0.9 % (0-2); Eosinophils Absolute Auto 0 /uL (0-450); Eosinophils Percent Auto 0.4 % (2-4); Hematocrit 26.5 % (36-46); Hemoglobin 8.8 g/dL (12.0-16.0); Lymphocytes Absolute Auto 3300 /uL (1100-4500); Lymphocytes Percent Auto 28.2 % (25-40); Mean Corpuscular HGB Conc 33.5 % (30-36); Mean Corpuscular Hemoglobin 26.7 PG (26-34); Mean Corpuscular Volume 79.9 fL (80-100); Monocytes Absolute Auto 500 /uL (0-900); Monocytes Percent Auto 4.5 % (3-14); Neutrophils Absolute Auto 7800 /uL (1500-7000); Platelet Count 311 X10^3/uL (150-400); Red Blood Cell Count 3.31 X10^6/uL (4.0-5.2); White Blood Cell Count 11.8 X10^3/uL (4.5-11.0)
--- NOTE | 2024-12-31 08:03 | PM.OBPN.1 ---
Subjective - OB Subjective Patient comments: no complaints, pain well controlled, incisional pain and flatus present baby status: nursing well [place] feeding status: exclusively breast feeding Date Patient Seen: 12/31/24 Time Patient Seen: 07:55 Interval history: No issues overnight. Pain well controlled. No nausea and vomiting. Exam Vital Signs (past 8 hours): Oxygen Delivery Method Room Air Const General: cooperative and comfortable Nutritional Appearance: average body habitus Orientation: alert and oriented x3 HENMT Head: normal to inspection, atraumatic and abrasion Ears: hearing grossly normal bilaterally Face and sinus: face symmetric Eyes General: appearance normal, both eyes and all related structures Conjunctivae: conjunctivae normal Sclera: sclerae normal EOM: EOM intact bilaterally Neck Neck: normal visual inspection Resp Effort & Inspection: normal respiratory effort and able to speak in complete sentences Auscultation: clear to auscultation bilaterally Cardio Rate: regular rate Rhythm: regular rhythm Heart Sounds: S1 normal, S2 normal and no murmurs GI Inspection: normal to inspection and incision (Surgical dressing clean and dry) Palpation: soft, no hepatosplenomegaly and tender (Mild, diffuse postsurgical tenderness) Auscultation: hypoactive bowel sounds External Female Exam: other (Light-moderate lochia) Extrem General: no calf tenderness Psych Appearance: grossly normal Mental Status: mental status grossly normal Speech and Movement: speech and movement normal Mood: congruent mood Affect: normal affect Attitude: cooperative Thought Process: normal Thought Content: normal Judgment: judgment good Objective Labs 12/31/24 06:33 Labs: Laboratory Results - last 24 hr 12/31/24 06:33 WBC 11.8 H RBC 3.31 L Hgb 8.8 L Hct 26.5 L MCV 79.9 L MCH 26.7 MCHC 33.5 RDW 17.0 H Plt Count 311 Neut % (Auto) 66.0 Lymph % (Auto) 28.2 [place] % (Auto) 4.5 Eos % (Auto) 0.4 L Baso % (Auto) 0.9 Neut # (Auto) 7800 H Lymph # (Auto) 3300 [place] # (Auto) 500 Eos # (Auto) 0 Baso # (Auto) 100 Assessment & Plan Plan day: 1 plan OB: routine postop care Comments: Anticipate DC to rooming in/boarding status tomorrow with the baby expected to meet discharge criteria Friday01/02/25. Time-Based Coding :: [TOTAL MINUTES] spent with patient and on the chart (including review of chart, obtaining history, exam, reviewing outside data, placing orders, documenting exam and treatment plan, and counseling patient) on [DATE].
[2024-12-31] MEDS: DOCUSATE 100 MG CAPSULE PO (08:41)
[2024-12-31] MEDS: PRENATAL VIT,CALC/IRON/FOLIC 1 TABLET 1 TAB PO (08:41)
[2024-12-31] MEDS: METHADONE INTENSOL 10 MG/ML ORAL.CONC 47 MG PO ×2 (08:55→20:52)
--- NOTE | 2024-12-31 09:15 | CM.SWNOTE ---
DIRECTOR OF MEDIA Note- CPS Met w/CPS worker Glendy, briefly. Glendy will have a brief informal visit with MOB this morning; this DIRECTOR OF MEDIA's report screend out. CPS will follow up with this family once home to offer support as needed. No further social work needs identified at this time. Bedside RN present and updated. YONG
[2024-12-31] MEDS: IBUPROFEN 600 MG TABLET PO ×3 (11:18→22:38)
[2025-01-01] MEDS: ACETAMINOPHEN 325 MG TABLET 650 MG PO ×4 (03:04→20:55)
[2025-01-01] MEDS: OXYCODONE IR 10 MG TABLET PO ×4 (03:04→15:59)
[2025-01-01] MEDS: IBUPROFEN 600 MG TABLET PO ×3 (06:31→18:28)
[2025-01-01] MEDS: PRENATAL VIT,CALC/IRON/FOLIC 1 TABLET 1 TAB PO (08:07)
[2025-01-01] MEDS: DOCUSATE 100 MG CAPSULE PO (08:07)
[2025-01-01 08:58] LABS: Add Manual Diff / Slide Review NO; Basophils Absolute Auto 100 /uL (0-100); Eosinophils Absolute Auto 100 /uL (0-450); Eosinophils Percent Auto 0.9 % (2-4); Hematocrit 28.6 % (36-46); Hemoglobin 9.4 g/dL (12.0-16.0); Lymphocytes Absolute Auto 3000 /uL (1100-4500); Lymphocytes Percent Auto 33.2 % (25-40); Mean Corpuscular HGB Conc 32.8 % (30-36); Mean Corpuscular Hemoglobin 26.5 PG (26-34); Mean Corpuscular Volume 80.7 fL (80-100); Monocytes Absolute Auto 400 /uL (0-900); Monocytes Percent Auto 4.2 % (3-14); Neutrophils Absolute Auto 5500 /uL (1500-7000); Neutrophils Percent Auto 60.7 % (50-75); Platelet Count 302 X10^3/uL (150-400); Red Blood Cell Count 3.55 X10^6/uL (4.0-5.2); White Blood Cell Count 9.1 X10^3/uL (4.5-11.0)
[2025-01-01 09:10] LABS: Alanine Aminotransferase 23 IU/L (<35); Albumin Globulin Ratio 0.8 (1.0-2.8); Alkaline Phosphatase 175 U/L (38-126); Aspartate Aminotransferase 28 IU/L (14-36); BUN Creatinine Ratio 11.6 (6-22); Bilirubin Total 0.2 mg/dL (0.2-1.3); Blood Urea Nitrogen 10 mg/dL (7-17); Calcium 8.4 mg/dL (8.4-10.2); Carbon Dioxide 28 mmol/L (22-32); Chloride 103 mmol/L (98-107); Estimated Glomerular Filt Rate > 60 mL/min (>60); Globulin 3.8 g/dL (1.7-4.1); Glucose 81 mg/dL (70-100); HEMOLYSIS < 15 (0-50); Potassium 4.1 mmol/L (3.4-5.1); Sodium 136 mmol/L (137-145); Total Protein 6.8 g/dL (6.3-8.2); Uric Acid 3.9 mg/dL (2.5-6.2)
[2025-01-01] MEDS: METHADONE INTENSOL 10 MG/ML ORAL.CONC 47 MG PO ×2 (09:30→20:55)
--- NOTE | 2025-01-01 09:43 | PM.OBDS.1 ---
Discharge Providers Provider Date of admission: 12/30/24 05:46 Discharge Date: 01/01/25 Primary care physician: Daniele Trinh Consults: 12/30/24 09:54 Consult to [employer] Cleaner Routine Comment: Discharge provider: Jose Paz MD Summary Hospital Course Date Patient Seen: 01/01/25 Time Patient Seen: 09:43 Diagnoses: Intrauterine gestation, 38+ 3 weeks Prior section x3 History opioid abuse, currently on methadone maintenance [facility] Hospital Course: Bisi was admitted on the morning of 12/30/2023 and underwent a uneventful repeat section. Details of the procedure well summarized on my operative note of that date. Following delivery both mother and baby have done well with the mother experiencing prompt return of bowel and bladder function, she is ambulating independently, tolerating a regular diet, and her pain is well relieved with oral pain medication. She will be discharged at this time in an afebrile normotensive condition to home after counseling regarding precautionary symptoms, limitations of activity, medications, and plans for follow-up which will be in 1 week following delivery. Medications at discharge will include resumption of all preadmission medications including her methadone 47 mg p.o. b.i.d.. Other medications include oxycodone 10 mg every 4-6 hours as needed for pain, dispense 20 tabs with no refills, and ibuprofen 600 mg p.o. every 6 hours as needed for pain, dispensed 30 with two refills Peripartum Data Infant Delivery Method: Section Laceration Description: None Episiotomy description: None Procedures: Spinal block anesthetic Repeat section, low transverse cervical complications: none [place] 1: Gender: Female Disposition of : other ( for remain for another 24 hours under observation.) Status at Discharge Functional status at discharge: independent ambulation Overall status at discharge: patient is progressing back to baseline Time Spent with Patient Time attestation: Total time spent providing and/or coordinating discharge services: Time spent: Less than 30 minutes Objective Labs 01/01/25 08:45 01/01/25 08:45 Labs: Laboratory Results - last 24 hr 01/01/25 08:45 WBC 9.1 RBC 3.55 L Hgb 9.4 L Hct 28.6 L MCV 80.7 MCH 26.5 MCHC 32.8 RDW 17.0 H Plt Count 302 Neut % (Auto) 60.7 Lymph % (Auto) 33.2 [place] % (Auto) 4.2 Eos % (Auto) 0.9 L Baso % (Auto) 1.0 Neut # (Auto) 5500 Lymph # (Auto) 3000 [place] # (Auto) 400 Eos # (Auto) 100 Baso # (Auto) 100 Sodium 136 L Potassium 4.1 Chloride 103 Carbon Dioxide 28 BUN 10 Creatinine 0.86 Estimated GFR > 60 BUN/Creatinine Ratio 11.6 Glucose 81 Uric Acid 3.9 Calcium 8.4 Total Bilirubin 0.2 AST 28 ALT 23 Alkaline Phosphatase 175 H Total Protein 6.8 Albumin 3.0 L Globulin 3.8 Albumin/Globulin Ratio 0.8 L Exam Vital Signs (past 8 hours): Oxygen Delivery Method Room Air Const General: cooperative and comfortable Nutritional Appearance: average body habitus Orientation: alert and oriented x3 HENMT Head: normal to inspection, atraumatic and abrasion Ears: hearing grossly normal bilaterally Face and sinus: face symmetric Eyes General: appearance normal, both eyes and all related structures Conjunctivae: conjunctivae normal Sclera: sclerae normal EOM: EOM intact bilaterally Neck Neck: normal visual inspection Resp Effort & Inspection: normal respiratory effort and able to speak in complete sentences Auscultation: clear to auscultation bilaterally Cardio Rate: regular rate Rhythm: regular rhythm Heart Sounds: S1 normal, S2 normal and no murmurs GI Inspection: normal to inspection and incision (Compression dressing removed, Aquacel applied) Palpation: soft, no hepatosplenomegaly and tender (Mild, diffuse postsurgical tenderness) Auscultation: normal bowel sounds External Female Exam: other (Light-moderate lochia noted) Extrem General: no calf tenderness Psych Appearance: grossly normal Mental Status: mental status grossly normal Speech and Movement: speech and movement normal Mood: congruent mood Affect: normal affect Attitude: cooperative Thought Process: normal Thought Content: normal Judgment: judgment good Discharge Plan Discharge Plan Patient Disposition: Home Provider Discharge Comment: Please review the written instructions you received when you were discharged from the hospital. Your follow-up appointment will be scheduled for 1 week after your and we look forward to seeing you then. If however in the meanwhile you have any issues, concerns, or questions, please contact the office either by phone at [phone], or via the patient portal. Discharge orders & Medications Prescriptions: New ibuprofen 600 mg Tablet 600 mg PO Q6H Qty: 30 2RF oxycodone 10 mg Tablet 10 mg PO Q4-6H PRN (Reason: Pain, Moderate (4-6)) Qty: 20 0RF Continued WesTab Plus 27 mg iron- 1 mg tablet 1 tab PO DAILY pyridoxine (vitamin B6) 50 mg tablet 25 mg PO BID Qty: 60 2RF ondansetron 4 mg tablet,disintegrating 4 mg PO Q8H PRN (Reason: nausea and vomiting ) Qty: 21 1RF Follow up/Referrals: Daniele Trinh [Primary Care Provider] - Jose Paz MD [Physician] - 02/11/25 10:30 am (Please follow up for your 1 week incision check appointment with Dr. Paz on Friday01/07/25 @3:30 pm. Please arrive at 3:15pm! Additionally, please follow up for your [address] Paz on Friday02/11/25 @10:30am. Please arrive at 10:15am!) Discharge Health Status Multidrug resistant organism: No MDRO Diet/Activity/Treatments Diet: Diet as Tolerated Activity: As tolerated Other treatments: [id number] Tylenol and/or ibuprofen may be used as needed for additional pain relief. Falj-lfb-mcrunin stool softeners and/or MiraLax may be used as needed for constipation. Skin/Wound/Dressing Care Report to your healthcare provider any signs of infection, such as:: chills, fever, increased pain, unusual drainage and unusual redness Visit Report/Discharge Packet Instructions: DI for , DI for and Nipple Soreness, DI for Prescription Opioid Use Discharge Data Primary Care Provider: Daniele Trinh
[2025-01-01 10:04] LABS: Creatinine Urine Random 20.83 mg/dL; Protein (Total) Urine Random 35 mg/dL (0-12); Protein Creatinine Ratio Urine 1.68 GRAM/24H
[2025-01-01] MEDS: MEASLES,MUMPS,RUBELLA VACC/PF 0.5 ML VIAL SUBCUT (10:24)
[2025-01-02] MEDS: OXYCODONE IR 10 MG TABLET PO ×5 (00:34→23:54)
[2025-01-02] MEDS: IBUPROFEN 600 MG TABLET PO ×5 (00:34→23:57)
[2025-01-02] MEDS: ACETAMINOPHEN 325 MG TABLET 650 MG PO ×3 (06:43→18:20)
[2025-01-02] MEDS: METHADONE INTENSOL 10 MG/ML ORAL.CONC 47 MG PO ×2 (08:46→18:51)
[2025-01-02] MEDS: DOCUSATE 100 MG CAPSULE PO (08:46)
[2025-01-02] MEDS: PRENATAL VIT,CALC/IRON/FOLIC 1 TABLET 1 TAB PO (08:46)
--- NOTE | 2025-01-02 09:01 | P.PNOB_ITS ---
Subjective - OB Subjective Patient comments: no complaints, pain well controlled, incisional pain and flatus present baby status: doing well and nursing well [place] feeding status: exclusively breast feeding Narrative: Patient continues to do well w/o any issues Date Patient Seen: 01/02/25 Time Patient Seen: 09:02 Exam Vital Signs (past 8 hours): Oxygen Delivery Method Room Air Const General: cooperative and comfortable Nutritional Appearance: average body habitus Orientation: alert and oriented x3 HENMT Head: normal to inspection, atraumatic and abrasion Ears: hearing grossly normal bilaterally Face and sinus: face symmetric Eyes General: appearance normal, both eyes and all related structures Conjunctivae: conjunctivae normal Sclera: sclerae normal EOM: EOM intact bilaterally Neck Neck: normal visual inspection Resp Effort & Inspection: normal respiratory effort and able to speak in complete sentences Auscultation: clear to auscultation bilaterally Cardio Rate: regular rate Rhythm: regular rhythm Heart Sounds: S1 normal, S2 normal and no murmurs GI Inspection: normal to inspection and incision (AquaCel clean an dry) Palpation: soft, no hepatosplenomegaly and tender (Mild, diffuse postsurgical tenderness) Auscultation: normal bowel sounds External Female Exam: other (No significant bleeding noted) Extrem General: no calf tenderness Psych Appearance: grossly normal Mental Status: mental status grossly normal Speech and Movement: speech and movement normal Mood: congruent mood Affect: normal affect Attitude: cooperative Thought Process: normal Thought Content: normal Judgment: judgment good Objective Labs 01/01/25 08:45 01/01/25 08:45 Labs: Laboratory Results - last 24 hr 01/01/25 01/01/25 08:45 09:30 WBC 9.1 RBC 3.55 L Hgb 9.4 L Hct 28.6 L MCV 80.7 MCH 26.5 MCHC 32.8 RDW 17.0 H Plt Count 302 Neut % (Auto) 60.7 Lymph % (Auto) 33.2 [place] % (Auto) 4.2 Eos % (Auto) 0.9 L Baso % (Auto) 1.0 Neut # (Auto) 5500 Lymph # (Auto) 3000 [place] # (Auto) 400 Eos # (Auto) 100 Baso # (Auto) 100 Sodium 136 L Potassium 4.1 Chloride 103 Carbon Dioxide 28 BUN 10 Creatinine 0.86 Estimated GFR > 60 BUN/Creatinine Ratio 11.6 Glucose 81 Uric Acid 3.9 Calcium 8.4 Total Bilirubin 0.2 AST 28 ALT 23 Alkaline Phosphatase 175 H Total Protein 6.8 Albumin 3.0 L Globulin 3.8 Albumin/Globulin Ratio 0.8 L U Random Total Protein 35 H Urine Creatinine 20.83 Protein/Creatinin Ratio 1.68 Assessment & Plan Plan day: 3 plan OB: routine care Comments: Patient remains hospitalized in order to receive BID Methadone over the weekend. Time-Based Coding :: 10 minutes spent with patient and on the chart (including review of chart, obtaining history, exam, reviewing outside data, placing orders, documenting exam and treatment plan, and counseling patient) on 01/02/2025.
[2025-01-02] MEDS: ONDANSETRON 4 MG ODT SL ×2 (13:40→19:14)
[2025-01-02 18:11] LABS: Add Manual Diff / Slide Review NO; Basophils Absolute Auto 100 /uL (0-100); Basophils Percent Auto 0.9 % (0-2); Eosinophils Absolute Auto 0 /uL (0-450); Eosinophils Percent Auto 0.3 % (2-4); Hematocrit 29.4 % (36-46); Hemoglobin 9.6 g/dL (12.0-16.0); Lymphocytes Absolute Auto 2100 /uL (1100-4500); Lymphocytes Percent Auto 21.3 % (25-40); Mean Corpuscular HGB Conc 32.7 % (30-36); Mean Corpuscular Hemoglobin 26.5 PG (26-34); Mean Corpuscular Volume 81.2 fL (80-100); Monocytes Absolute Auto 300 /uL (0-900); Neutrophils Absolute Auto 7400 /uL (1500-7000); Neutrophils Percent Auto 74.5 % (50-75); Platelet Count 352 X10^3/uL (150-400); Red Blood Cell Count 3.62 X10^6/uL (4.0-5.2)
[2025-01-02 18:24] LABS: Alanine Aminotransferase 27 IU/L (<35); Albumin 3.3 g/dL (3.5-5.0); Albumin Globulin Ratio 0.8 (1.0-2.8); Alkaline Phosphatase 180 U/L (38-126); Aspartate Aminotransferase 31 IU/L (14-36); BUN Creatinine Ratio 13.3 (6-22); Bilirubin Total 0.4 mg/dL (0.2-1.3); Blood Urea Nitrogen 10 mg/dL (7-17); Calcium 8.8 mg/dL (8.4-10.2); Carbon Dioxide 26 mmol/L (22-32); Chloride 102 mmol/L (98-107); Estimated Glomerular Filt Rate > 60 mL/min (>60); Globulin 4.1 g/dL (1.7-4.1); Glucose 93 mg/dL (70-100); HEMOLYSIS < 15 (0-50); Sodium 135 mmol/L (137-145); Total Protein 7.4 g/dL (6.3-8.2)
[2025-01-03] MEDS: ACETAMINOPHEN 325 MG TABLET 650 MG PO ×2 (02:53→09:18)
[2025-01-03] MEDS: IBUPROFEN 600 MG TABLET PO ×2 (05:45→12:02)
[2025-01-03] MEDS: OXYCODONE IR 10 MG TABLET PO ×2 (05:45→12:02)
--- NOTE | 2025-01-03 07:29 | PM.OBDS.1 ---
Discharge Providers Provider Date of admission: 12/30/24 05:46 Discharge Date: 01/03/25 Primary care physician: Daniele Trinh Consults: 12/30/24 09:54 Consult to Integrated Circuit Design Engineer Routine Comment: Discharge provider: Stacey Zhang MD Summary Hospital Course Date Patient Seen: 01/03/25 Time Patient Seen: 07:30 Hospital Course: Bisi was admitted on the morning of 12/30/2023 and underwent a uneventful repeat section. Details of the procedure well summarized on my operative note of that date. Following delivery both mother and baby have done well with the mother experiencing prompt return of bowel and bladder function, she is ambulating independently, tolerating a regular diet, and her pain is well relieved with oral pain medication. Patient held inpatient over weekend for prolonged observation as well as continued maternal MAT. She will be discharged at this time in an afebrile normotensive condition to home after counseling regarding precautionary symptoms, limitations of activity, medications, and plans for follow-up which will be in 1 week following delivery. Medications at discharge will include resumption of all preadmission medications including her methadone 47 mg p.o. b.i.d.. Other medications include oxycodone 10 mg every 4-6 hours as needed for pain, dispense 20 tabs with no refills, and ibuprofen 600 mg p.o. every 6 hours as needed for pain, dispensed 30 with two refills Peripartum Data Delivery Method: Section Procedures: repeat complications: none [place] 1: Gender: Female Disposition of : home Discharge Diagnosis (1) Encounter for maternal care for low transverse scar from repeat delivery: Status: Acute Status at Discharge Cognitive/behavioral status at discharge: oriented Functional status at discharge: independent ambulation Overall status at discharge: patient is back to baseline Time Spent with Patient Time attestation: Total time spent providing and/or coordinating discharge services: Time spent: Less than 30 minutes Time spent discussing smoking cessation with patient: 3 to 10 minutes Objective Labs 01/02/25 17:58 01/02/25 17:58 Labs: Laboratory Results - last 24 hr 01/02/25 17:58 WBC 10.0 RBC 3.62 L Hgb 9.6 L Hct 29.4 L MCV 81.2 MCH 26.5 MCHC 32.7 RDW 17.0 H Plt Count 352 Neut % (Auto) 74.5 Lymph % (Auto) 21.3 L [place] % (Auto) 3.0 Eos % (Auto) 0.3 L Baso % (Auto) 0.9 Neut # (Auto) 7400 H Lymph # (Auto) 2100 [place] # (Auto) 300 Eos # (Auto) 0 Baso # (Auto) 100 Sodium 135 L Potassium 4.0 Chloride 102 Carbon Dioxide 26 BUN 10 Creatinine 0.75 Estimated GFR > 60 BUN/Creatinine Ratio 13.3 Glucose 93 Calcium 8.8 Total Bilirubin 0.4 AST 31 ALT 27 Alkaline Phosphatase 180 H Total Protein 7.4 Albumin 3.3 L Globulin 4.1 Albumin/Globulin Ratio 0.8 L Exam Vital Signs (past 8 hours): Oxygen Delivery Method Room Air maternal VS reviewed in OBIX, wnl Const General: cooperative, comfortable and well developed Nutritional Appearance: average body habitus Orientation: alert, awake and oriented x3 Limitations: mental status not altered Resp Effort & Inspection: normal respiratory effort and able to speak in complete sentences Cardio Pulses: normal peripheral pulses GI Inspection: normal to inspection Other: abd dressing in place, c/d/i, non-tender Other: deferred Skin General: no rashes or lesions noted Neuro General: patient alert, patient awake and patient oriented x3 Extrem General: normal to inspection Psych Mental Status: mental status grossly normal Judgment: judgment good Discharge Plan Discharge Plan Patient Disposition: Home Provider Discharge Comment: Please review the written instructions you received when you were discharged from the hospital. Your follow-up appointment will be scheduled for 1 week after your and we look forward to seeing you then. If however in the meanwhile you have any issues, concerns, or questions, please contact the office either by phone at [phone], or via the patient portal. Discharge orders & Medications Prescriptions: New ibuprofen 600 mg Tablet 600 mg PO Q6H Qty: 30 2RF oxycodone 10 mg Tablet 10 mg PO Q4-6H PRN (Reason: Pain, Moderate (4-6)) Qty: 20 0RF Continued WesTab Plus 27 mg iron- 1 mg tablet 1 tab PO DAILY pyridoxine (vitamin B6) 50 mg tablet 25 mg PO BID Qty: 60 2RF ondansetron 4 mg tablet,disintegrating 4 mg PO Q8H PRN (Reason: nausea and vomiting ) Qty: 21 1RF Follow up/Referrals: Jose Paz MD [Physician] - 02/11/25 10:30 am (Please follow up for your 1 week incision check appointment with Dr. Paz on Friday01/07/25 @3:30 pm. Please arrive at 3:15pm! Additionally, please follow up for your [address] Paz on Friday02/11/25 @10:30am. Please arrive at 10:15am!) Discharge Health Status Multidrug resistant organism: No MDRO Diet/Activity/Treatments Diet: Diet as Tolerated Activity: As tolerated Other treatments: [id number] Tylenol and/or ibuprofen may be used as needed for additional pain relief. [id number]-lja-vypnbmd stool softeners and/or MiraLax may be used as needed for constipation. Skin/Wound/Dressing Care Report to your healthcare provider any signs of infection, such as:: chills, fever, increased pain, unusual drainage and unusual redness Visit Report/Discharge Packet Instructions: DI for , DI for and Nipple Soreness, DI for Prescription Opioid Use Stand Alone Forms: Discharge: Care Discharge Data Primary Care Provider: Daniele Trinh
[2025-01-03] MEDS: METHADONE INTENSOL 10 MG/ML ORAL.CONC 47 MG PO (08:24)
[2025-01-03] MEDS: ONDANSETRON 4 MG ODT SL (09:48)
[2025-01-03 11:56] VITALS: BP 133/87; PULSE 66; RESP 16; TEMP 36.6
== END 2025-01-03 12:18 | disposition home or self-care (01) | DRG 540 ==
PROVIDERS: Admitting Provider Obstetrics & Gynecology; PCP Nurse Practitioner Family; Referring Provider Obstetrics & Gynecology; Visit Provider Obstetrics & Gynecology
PROC: 10D00Z1 Extraction of Products of Conception, Low, Open Approach (ICD-10-PCS; CPT 59514; principal; 2024-12-30 07:45)
DX: O34.211 Maternal care for low transverse scar from previous cesarean delivery (principal); Z3A.38 38 weeks gestation of pregnancy; Z37.0 Single live birth; N73.6 Female pelvic peritoneal adhesions (postinfective); O99.324 Drug use complicating childbirth; F11.20 Opioid dependence, uncomplicated
CPT/HCPCS: 36415; 59050; 59514; 80053; 80305; 84550; 85025; 86850; 86900; 86901; J0134; J0690; J1100; J1885; J2250; J2274; J2405

== ENCOUNTER → 2025-10-17 14:19 | Oncology outpatient (ONC) | payer OTHER, SELFPAY ==
[2025-10-17 14:33] VITALS: BP 117/67; PULSE 52; RESP 18; TEMP 36.4; O2SAT 98
[2025-10-17] MEDS: IRON SUCROSE 200 MG in SODIUM CHLORIDE 0.9% 100 ML 220 MG IV (14:55)
[2025-10-17 16:00] VITALS: BP 129/70; PULSE 54; RESP 16; TEMP 36.3; O2SAT 99
== END ==
PROVIDERS: PCP Nurse Practitioner Family; Referring Provider Family Medicine; Visit Provider Family Medicine
DX: D50.9 Iron deficiency anemia, unspecified (principal)
CPT/HCPCS: 96365; J1756; J7050